=== PATIENT | male | born 1960 | race Caucasian/White ===

== ENCOUNTER 2019-08-09 00:38 | Day surgery (SDC) | payer BC, SELFPAY ==
[2019-08-02 15:06] VITALS: BMI 32.3
[2019-08-09 08:12] VITALS: BP 140/86; PULSE 83; RESP 14; TEMP 36.8; O2SAT 100
[2019-08-09] MEDS: LACTATED RINGERS 1,000 ML 150 ML IV CONT (08:18)
--- NOTE | 2019-08-09 08:24 | WPDGICN ---
Assessment and Plan Assessment and plan (1) Ulcerative colitis: Code(s): K51.90 - Ulcerative colitis, unspecified, without complications Status: Acute Assessment and Plan: Continue Lialda 2.4 g p.o. daily. Screening colonoscopy will be performed. Interval colonoscopy suggested in the future determined after endoscopy. (2) GERD (gastroesophageal reflux disease): Code(s): K21.9 - Gastro-esophageal reflux disease without esophagitis Status: Acute Assessment and Plan: Stable on pantoprazole 40 mg p.o. daily. Anti-reflux measures encouraged. GI Consult Note Consult date/time: 08/09/19 08:24 HPI: Bronson Dey is a 59 year old male Seen at the request of Dr. Zhang. Patient presents for screening colonoscopy. His past history is significant for ulcerative colitis. Currently he has no symptoms. His current weight appetite bowel movements are normal. He denies abdominal pain. He denies bleeding. His weight has remained stable. He has normal bowel movements with no diarrhea. Patient does note occasional heartburn. He has had a good response to pantoprazole 40 mg p.o. daily. Review of Systems Review of Systems: All systems reviewed & are unremarkable except as noted in HPI and below Meds Home Medications and Allergies Home Medications Medication Instructions Recorded Confirmed Type atorvastatin 10 mg PO DAILY 08/02/19 08/09/19 History mesalamine 1.2 g PO BID 08/02/19 08/09/19 History pantoprazole 40 mg PO DAILY 08/02/19 08/09/19 History Allergies Allergy/AdvReac Type Severity Reaction Status Date / Time No Known Allergies Allergy Verified 08/09/19 08:08 Vital Signs Vital Signs - 24 hr 08/09/19 08:12 Temperature 36.8 C Pulse Rate 83 Respiratory Rate 14 Blood Pressure 140/86 Pulse Oximetry 100 Exam Narrative: Exam Narrative: Physical exam reveals Vital Signs to be stable. HEENT exam unremarkable. Lungs are clear to auscultation and percussion. Heart is without murmur or extra sounds. Abdominal exam bowel sounds are present soft nontender with no organomegaly. Digital external rectal exam normal.
--- NOTE | 2019-08-09 08:46 | P.PNAN_ITS ---
Anes - Initial Pre Proc Eval Procedure: Operation Date: 08/09/19 09:00 Proposed Procedures p Colonoscopy - Terrence Dave MD Date/Time: 08/09/19 08:46 Surgeon: Terrence Dave MD Pre Op Diagnosis: ulcerative colitis Patient Data Age: 59 Gender: M Height: 5 ft 9 in Weight: 99.5 kg Last Vital Signs Temp 98.3 F 08/09/19 08:12 Pulse 83 08/09/19 08:12 Resp 14 08/09/19 08:12 BP 140/86 08/09/19 08:12 Pulse Ox 100 08/09/19 08:12 Allergies Allergy/AdvReac Type Severity Reaction Status Date / Time No Known Allergies Allergy Verified 08/09/19 08:08 Home Medications Medication Instructions Recorded Confirmed Type atorvastatin 10 mg PO DAILY 08/02/19 08/09/19 History mesalamine 1.2 g PO BID 08/02/19 08/09/19 History pantoprazole 40 mg PO DAILY 08/02/19 08/09/19 History Patient hx anesthesia problems: none Family hx anesthesia problems: none [facility] Past Medical History Medical History (Updated 08/09/19 @ 08:46 by Haris Shah MD) GERD (gastroesophageal reflux disease) Hyperlipidemia Ulcerative colitis Anes - Eval Final PreProcedure Day of Procedure 08/09/19 08:46 Patient weight: overweight Heart: regular rate and rhythm Lungs: clear to auscultation Airway: Mallampati scale class II Neurological: alert and oriented Last oral intake: >/= 8 hours ASA classification: II Emergent: no Anesthetic plan: proceed Anesthesia type and monitoring: general GIVS and standard monitoring Informed Consent: The patient's anesthetic plan and its attendant risks and benefits were discussed with the patient/family/POA. Questions were solicited and answers provided to the satisfaction of the patient/family/POA.
[2019-08-09 09:13] VITALS: BP 102/74; PULSE 93; RESP 16; O2SAT 96
[2019-08-09 09:23] VITALS: BP 113/71; PULSE 84; RESP 16; O2SAT 98
[2019-08-09 09:33] VITALS: BP 133/69; PULSE 75; RESP 16; O2SAT 98
== END 2019-08-09 09:44 | disposition home or self-care (01) ==
PROVIDERS: PCP Family Medicine; Visit Provider Internal Medicine Gastroenterology
PROC: 0DJD8ZZ Inspection of Lower Intestinal Tract, Via Natural or Artificial Opening Endoscopic (ICD-10-PCS; CPT 45378; principal; 2019-08-09 09:00)
DX: K51.90 Ulcerative colitis, unspecified, without complications (principal); K63.89 Other specified diseases of intestine; K64.8 Other hemorrhoids; K21.9 Gastro-esophageal reflux disease without esophagitis
CPT/HCPCS: 45380; 88305; J2704; J7120

== ENCOUNTER 2020-05-23 11:28 | Emergency (ER) | payer BC, SELFPAY ==
--- NOTE | ~2020-05-23 | XR_ITS ---
EXAMINATION: XR ankle RT min 3V INDICATION: Medial right ankle pain TECHNIQUE: Four views of the right ankle are obtained. COMPARISON: None available FINDINGS: There is soft tissue swelling of the medial ankle. Heterotopic ossification projects adjace nt to the medial malleolus. Bone alignment is normal. The mortise is intact. IMPRESSION: 1. Heterotopic ossification adjacent to the medial malleolus which could reflect avulsion injury. Reviewed, dictated and finalized at location A. ENTRY FOREMAN IMPRESSION: 1. Heterotopic ossification adjacent to the medial malleolus which could reflec t avulsion injury.
[2020-05-23 11:41] VITALS: BP 145/88; PULSE 71; RESP 20; TEMP 36.6; O2SAT 100
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
== END 2020-05-23 12:35 | disposition home or self-care (01) ==
PROVIDERS: Emergency Provider Nurse Practitioner Family; PCP Family Medicine
DX: S82.891A Other fracture of right lower leg, initial encounter for closed fracture (principal); K21.9 Gastro-esophageal reflux disease without esophagitis; E78.5 Hyperlipidemia, unspecified; E66.9 Obesity, unspecified; Z68.34 Body mass index [BMI] 34.0-34.9, adult; R03.0 Elevated blood-pressure reading, without diagnosis of hypertension; X58.XXXA Exposure to other specified factors, initial encounter
CPT/HCPCS: 73610; 99214; G0463

== ENCOUNTER 2021-01-06 04:49 | Emergency (ER) | payer OTHER, BC, SELFPAY ==
[2021-01-06 05:11] VITALS: BP 138/89; RESP 20; TEMP 36.6; O2SAT 97
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
== END 2021-01-06 06:09 | disposition home or self-care (01) ==
PROVIDERS: Emergency Provider Emergency Medicine; PCP Family Medicine
DX: S01.01XA Laceration without foreign body of scalp, initial encounter (principal); S01.81XA Laceration without foreign body of other part of head, initial encounter; K21.9 Gastro-esophageal reflux disease without esophagitis; E78.5 Hyperlipidemia, unspecified; E66.9 Obesity, unspecified; Z68.30 Body mass index [BMI] 30.0-30.9, adult; V43.52XA Car driver injured in collision with other type car in traffic accident, initial encounter
CPT/HCPCS: 12002; 12011; 99282

== ENCOUNTER 2022-08-03 16:07 | Emergency (ER) | payer BC, SELFPAY ==
[2022-08-03 16:34] VITALS: BP 155/99; PULSE 90; RESP 18; TEMP 36.8; O2SAT 97
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
== END 2022-08-03 17:00 | disposition home or self-care (01) ==
PROVIDERS: Emergency Provider Nurse Practitioner Family; PCP Family Medicine
DX: J32.9 Chronic sinusitis, unspecified (principal); J06.9 Acute upper respiratory infection, unspecified; R05.9 Cough, unspecified; K21.9 Gastro-esophageal reflux disease without esophagitis; E78.5 Hyperlipidemia, unspecified; E66.9 Obesity, unspecified; Z68.34 Body mass index [BMI] 34.0-34.9, adult
CPT/HCPCS: 99213; G0463

== ENCOUNTER 2023-05-30 09:49 | Outpatient (CLI) | payer BC, SELFPAY ==
--- NOTE | ~2023-05-30 | XR_ITS ---
EXAMINATION: XR chest 2V DATE: 05/30/2023 10:09 INDICATION: Cough TECHNIQUE: PA and lateral views of the chest are obtained. COMPARISON: 02/07/2009 FINDINGS: The lungs are free of acute opacities. No pleural effusion or pneumothorax. The cardiomedia stinal silhouette is normal. There is mild thoracic spondylosis. IMPRESSION: 1. No acute cardiopulmonary abnormality. Reviewed, dictated and finalized at location B. MATCHER AND FITTER
== END 2023-05-30 09:50 | disposition home or self-care (01) ==
PROVIDERS: PCP Family Medicine
DX: R05.9 Cough, unspecified (principal)
CPT/HCPCS: 71046

== ENCOUNTER 2025-01-10 07:56 | Outpatient (CLI) | payer BC, SELFPAY ==
--- OUTSIDE RECORDS SUMMARY | 2025-01-10 07:58 | XMS_ITS | Encounter Summary ---
Author Organization [facility] Address [address] [place] [address] Care Team Providers Care Elevator Mechanic Apprentice Name Role Phone Gerber Zhang MD Primary Care Provider [phone] Reason for Visit * Reason Onset Date Comments PMC Preprocedure 11/05/2024 Encounter Details Date Type Department Care Team (Late st Contact Info) Description 11/05/2024 Telephone [facility] [address] [facility] [address] [place] [address] Romario Núñez MD [address] [place] [address] PMC Preprocedure Social History Tobacco Use Types Packs/Day Years Used Date Smoking Tobacco: Never Smokeless Tobacco: Never AUDIT-C Answer Date Recorded Q1: How often do you have a drink containing alc ohol? Monthly or less 10/12/2024 Q2: How many drinks containi ng alcohol do you have on a typical day when you are drinking? 1 or 2 10/12/2024 Q3: How often do you have si x or more drinks on one occasion? Never 10/12/2024 Hunger Vital Sign Answer Date Recorded Within the past 12 months, y ou worried that your food would run out before you got the money to buy more. Never true 09/09/19 25 Within the past 12 months, t he food you bought just didn't last and you didn't have money to get more. Never true 09/08/2024 Sex and Gender Information Value Date Recorded Sex Assigned at Not on file Legal Sex Male 9:53 AM [employer]NA[employer] Gender Identity Not on file Sexual Orientation Not on file documented as of this encounter Plan of Treatment Not on file documented as of this encounter Goals Goal Patient Goal Type Associated Problems Recent Progress Patient-Stated? Author CCM Chronic Pain Care Plan Chronic Care Management Improving( 1:11 PM CDT) Teresa Richey, RN Note: Problem: Chronic Pain Goals: 1. Minimize further functional decline 2. Maximize quality of life 3. Control pain Strategies: - Activity/exercise program recommendation - Conservative stepwise pain medicine strategy with multi-disciplinary approach - Recommend healthy lifestyle strategies and compensatory methods as needed documented as of this encounter Visit Diagnoses Not on filedocumented in this encounter Care Teams Elevator Mechanic Apprentice Relationship Specialty Start Date End Date Gerber Zhang MD [address] [facility] [place] [address] PCP - General Family Medicine 05/17/24 documented as of this encounter
--- OUTSIDE RECORDS SUMMARY | 2025-01-10 07:58 | XMS_ITS ---
Author Organization [facility] [employer] [place] ([address]) Address [address] [place] [address] Care Team Providers Care Liquor Grinder Mill Operator Name Role Phone Gerber Zhang Primary Care Provider UnavailBilly Sherman Unavailable [phone] ZZ-Migration, Provider Unavailable Unavailab le [facility] Conversion Encounter Medications Medication SIG (Take, Route, Frequency, Duration) Notes Start Date End Date Status Meloxicam 7.5 MG 1 tab(s) orally once a day Active Azelastine HCl 137 MCG/SPRAY 2 spray(s) intranasally 2 times a day; Duration: 30 days Active FLUTICASONE HFA 110 MCG/INH 2 PUFF(S) INHALED 2 TIMES A DAY; Duration: 30 DAYS *Please review for potential replacement for e-prescription and drug interaction check* Not-Taking Ipratropium [place] 0.06 % 2 spray(s) intranasally 4 times a day; Duration: 30 days 06/09/2023 Active Omeprazole 20 MG 1 cap(s) orally once a day Active Montelukast Sodium 10 MG 1 tab(s) orally once a day Active Zolpidem Tartrate 10 MG 1 tab(s) orally once a day (at bedtime) Active Loratadine 10 MG 1 tab(s) orally once a day Active Cetirizine HCl 10 MG 1 tab(s) orally once a day Active Atorvastatin Calcium 20 MG 1 tab(s) orally once a day Active Levocetirizine Dihydrochloride 5 MG 1 tab(s) orally once a day (in the evening) Active Fluticasone Propionate 50 MCG/ACT 1 spray(s) in each nostril once a day Active Encounters Encounter Location Date Provider Diagnosis [facility] [place] [place] [address] 11/15/2023 Provider Min Hypertrophy of nasal turbinates J34.3 Assessments Encounter Date Diagnosis (ICD Code) Assessment Notes Treatment Notes Treatment Clinical Notes Section Notes 11/15/2023 Hypertrophy of nasal turbinates (ICD-10 - J34.3) Plan Of Treatment Medication Medication Name Sig Start Date Stop Date Notes Ipratropium [place] 0.06 % 2 spray(s) in tranasally 4 times a day; Duration: 30 days 06/09/2023 Montelukast Sodium 10 MG 1 tab(s) orally once a day Levocetirizine Dihydrochlori de 5 MG 1 tab(s) orally once a day (in the evening) Fluticasone Propionate 50 MCG/ACT 1 spray(s) in each nostril once a day Progress Notes * Bronson HORNER RDOB:1960 (64 yo M)Acc No.[id number]:11/15/2023 Patient: Yesenia KWOKBronson R Provider: Henri Calero :1960 A ge:63 Y S ex:Male Date:11/15/2023 [address] [id number] Pcp:Gerber Zhang Subjective: * Chief Complaints: * 1 . [facility] Conversion Encounter. * Medical History: * Medications: T aking Zolpidem Tartrate 10 MG Tablet 1 tab(s) orally once a day (at bedtime) , Taking Cetirizine HCl 10 MG Tablet 1 tab(s) orally once a day , Taking Loratadine 10 MG Tablet 1 tab(s) orally once a day , Taking Atorvastatin Calcium 20 MG Tablet 1 tab(s) orally once a day , Taking Omeprazole 20 MG Capsule Delayed Release 1 cap(s) orally once a day , Taking Meloxicam 7.5 MG Tablet 1 tab(s) orally once a day , Taking Azelastine HCl 137 MCG/SPRAY Solution 2 spray(s) intranasally 2 times a day , Not-Taking/PRN FLUTICASONE HFA 110 MCG/INH AEROSOL 2 PUFF(S) INHALED 2 TIMES A DAY , Notes to Pharmacist: *Please review for potential replacement for e-prescription and drug interaction check* Objective: * Vitals: Assessment: * Assessment: 1. H ypertrophy of nasal turbinates - J34.3 (Primary) Plan: * Treatment: * Billing Information: * Visit Code: * Procedure Codes: * Electronic signature of Duglas ALMARAZ-Migration on 01/10/2025 at 07:58 AM CDT Sign off status: Pending * Provider: Henri molina Migration Date: 0 11/15/2023 Generated for Kristopher bridges/Bj/Latrice on: 0 01/10/2025 07:58 AM CDT
--- OUTSIDE RECORDS SUMMARY | 2025-01-10 07:59 | XMS_ITS | Clinical Summary ---
Author Organization [facility] Address [address] [place] [address] Care Team Providers Care Wage Adjuster Name Role Phone Kim Murillo MD Primary Care Provider Source Comments [facility],non-owned Affiliates and Associated Physician Practices is amultiple site organization consisting of ambulatory clinics and hospital sitesin [place], [place], [place] and [place]. This disclosure is being madepursuant to the Care Everywhere program and may not contain all information available regarding this patient. 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 Gender Identity Not on file Sexual Orientation Not on file Plan of Treatment Health Maintenance Due Date Last Done Comments COLOGUARD (AGES 45-75) - COL ON CA SCREENING 1962 COLON MONITORING 1962 COLONOSCOPY - COLON CA SCREENING 1962 CT COLONOGRAPHY - COLON CA SCREENING 1962 Colorectal Cancer Screening 1962 FIT - COLON CA SCREENING 1962 FLEX SIG - COLON CA SCREENING 1962 LIPID TESTING 1962 HIV SCREENING 1977 HEPATITIS C SCREENING 05/20/1980 DTAP/TDAP/TD VACCINES (1 - Tdap) 1981 PNEUMOCOCCAL VACCINE 50+ (1 of 1 - PCV) 2012 ZOSTER VACCINE (1 of 2) 2012 COVID-19 VACCINE (1 - 2023-2 5 season) 2024 DEPRESSION SCREENING 06/02/2024 INFLUENZA VACCINE (#1) 2025 Respiratory Syncytial Virus (RSV) Vaccine Pt: or over 60 yrs (1 - 1-dose 75+ series) 2037 HEPATITIS B VACCINE Aged Out No longe r eligible based on patient's age to complete this topic HIB VACCINE Aged Out No longer eligi ble based on patient's age to complete this topic HPV VACCINE Aged Out No longer eligi ble based on patient's age to complete this topic MENINGOCOCCAL (Group B) VACC INE SHARED DECISION-MAKING Aged Out No longer eligibl e based on patient's age to complete this topic MENINGOCOCCAL GROUPS A/C/Y/W VACCINE Aged Out No longer eligible b ased on patient's age to complete this topic Insurance ANTHEM ANTHEM ANTHEM Member Subscriber Plan / Payer (Ef fective 2014-Present) Name:Elijah Horner Relation to Subscriber:Self Name:Elijah Horner Payer ID:[id number] (NAIC) Type:PPO Address: [address] [place] [phone] Care Teams Wage Adjuster Relationship Specialty Start Date End Date Kim Murillo MD [address] [place] [phone] PCP - General Family Medicine 11/23/14
--- OUTSIDE RECORDS SUMMARY | 2025-01-10 07:59 | XMS_ITS | Clinical Summary ---
Author Organization [facility] Address [address] [place] [address] Care Team Providers Care Litigation Support Analyst Name Role Phone Gerber Zhang MD Primary Care Provider [phone] Allergies Active Allergy Reactions Criticality Noted Date Comments Terbinafine Fever Medium 12/22/2024 Medications atorvastatin (LIPITOR) 20 mg tablet Take 1 tablet (20 mg total) by mouth nightly 05/10/20 24 Active lidocaine (LIDODERM) 5 % daily as needed 03/29/[address] (VOLTAREN) 75 mg EC tablet Take 1 tablet (75 mg total) by mouth daily Active omeprazole (PriLOSEC) 20 mg capsule Take 1 capsule (20 mg total) by mouth every morning 07/18/19 25 Active zolpidem (AMBIEN) 10 mg tablet Take 1 tablet (10 mg total) by mouth nightly as needed for sleep 09/03/19 25 Active baclofen (LIORESAL) 10 mg tabletIndicati ons:Lumbar spondylosis Take 1 tablet (10 mg total) by mouth 3 (three) times a day 90 tablet 09/09/19 25 Active Additional Information Patient taking differently:10 mg oral3 times daily PRN, Reported on 12/22/2024 cyclobenzaprin e (FLEXERIL) 10 mg tablet Take 1 tablet (10 mg total) by mouth 3 (three) times a day as needed for muscle spasms Active pregabalin (LYRICA) 50 mg capsule Take 1 capsule (50 mg total) by mouth 2 (two) times a day Active traMADoL (ULTRAM) 50 mg tablet every 6 (six) hours as needed Active losartan (COZAAR) 50 mg tablet Take 1 tablet (50 mg total) by mouth daily 11/18/19 25 Active phentermine 30 mg capsule Take 1 capsule (30 mg total) by mouth daily before breakfast 12/14/19 25 Active losartan (COZAAR) 25 mg tablet 2 tablets (50 mg total) 05/10/20 24 025 Discontinued naproxen (ALEVE) 220 mg tablet Take 1 tablet (220 mg total) by mouth 2 (two) times a day with meals 3 tablet twice a day 025 Discontinued(P atient Reported) loratadine (CLARITIN) 10 mg tablet daily 025 Discontinued(P atient Reported) phentermine 15 mg capsule Take 1 capsule (15 mg total) by mouth daily before breakfast 08/23/19 25 025 Discontinued gabapentin (NEURONTIN) 300 mg capsule 09/29/19 25 025 Discontinued(P atient Reported) Active Problems Problem Noted Date Diagnosed Date Osteoarthritis of spine with radiculopathy, lumbosacral region 06/23/2024 Radial nerve compression 08/29/2011 Encounters Date Type Department Care Team Description 12/22/2024 12:24 PM CDT - 12/22/2024 11:59 PM CDT Hospital Encounter [facility] [address] [facility] [address] [place] [address] Romario Núñez MD Sacroiliitis (Primary Dx); Cervical radiculopathy Discharge Disposition: Discharge to home or self care 12/17/2024 Telephone [facility] [address] [facility] [address] [place] [address] Romario Núñez MD [facility] Preprocedure 11/09/2024 8:13 AM CDT - 11/09/2024 11:59 PM CDT Hospital Encounter [facility] [address] [place] [address] Romario Núñez MD Cervical radiculopathy (Primary Dx); Sacroiliitis Discharge Disposition: Discharge to home or self care 11/05/2024 Telephone [facility] [address] [facility] [address] [place] [address] Romario Núñez MD [facility] Preprocedure 10/12/2024 10:21 AM CDT - 10/12/2024 11:59 PM CDT Hospital Encounter [facility] [address] [facility] [address] [place] [address] Romario Núñez MD Lumbar spondylosis (Primary Dx); Cervical radiculopathy Discharge Disposition: Discharge to home or self care from Last 3 Months Surgical History Surgery Date Site/Laterality Comments ARM SURGERY Left left forearm tendon removal Medical History Medical History Date Comments Low back pain Hypertension Hypercholesterolemia GERD (gastroesophageal reflux disease) Spinal stenosis 2023 Cervical disc disorder 2023 Lumbosacral disc disease 2023 Joint pain 2023 Neck pain 2023 Arthritis Family History Medical History Relation Name Comments Arthritis Mother Brinda Fernandes Cancer Mother Brinda Fernandes Kidney disease Mother Brinda Fernandes Kidney failure Mother Brinda Fernandes Relation Name Status Comments Father Mother Brinda Fernandes Alive Social History Tobacco Use Types Packs/Day Years Used Date Smoking Tobacco: Never Smokeless Tobacco: Never Tobacco Cessation:Counseling Given: Not Answered AUDIT-C Answer Date Recorded Q1: How often do you have a drink containing alc ohol? Monthly or less 12/22/2024 Q2: How many drinks containi ng alcohol do you have on a typical day when you are drinking? 1 or 2 12/22/2024 Q3: How often do you have si x or more drinks on one occasion? 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 Gender Identity Not on file Sexual Orientation Not on file Obstetrics History Last Filed Vital Signs Vital Sign Reading Time Taken Comments Blood Pressure 143/99 12/22/2024 2:11 PM CDT Pulse 70 12/22/2024 2:11 PM CDT Temperature 36.5 C (97.7 F) 12/22/2024 1:02 PM CDT Respiratory Rate 18 12/22/2024 2:11 PM CDT Oxygen Saturation 95% 12/22/2024 2:11 PM CDT Inhaled Oxygen Concentration - - Weight 102.1 kg (225 lb) 12/22/2024 1:02 PM CDT Height 175.3 cm (5' 9) 12/22/2024 1:02 PM CDT Body Mass Index 33.23 12/22/2024 1:02 PM CDT Plan of Treatment Health Maintenance Due Date Last Done Comments Colon Cancer Screening-Colonoscopy 1962 Depression Screening 1962 Hepatitis C Screening 1962 Prostate Cancer Screening-PSA 1962 Hepatitis B Screening 1980 Regular Well Visit/Exam 18-64 1980 Zoster Vaccine (1 of 2) 2012 Influenza Vaccine (#1) 2025 , 02/22/2021, 03/28/2020, Additional history exists DTaP/Tdap/Td Vaccine (2 - Td or Tdap) 03/22/2029 03/22/2019 Pneumococcal vaccine <65 Aged Out 04/17/2020 No longer eligible based on patient's age to complete this topic Covid-19 Vaccine Completed 03/16/2024, , 03/04/2022, Additional history exists Goals Goal Patient Goal Type Associated Problems Recent Progress Patient-Stated? Author CCM Chronic Pain Care Plan Chronic Care Management Improving( 1:11 PM CDT) No Teresa Pollard, RN Note: Problem: Chronic Pain Goals: 1. Minimize further functional decline 2. Maximize quality of life 3. Control pain Strategies: - Activity/exercise program recommendation - Conservative stepwise pain medicine strategy with multi-disciplinary approach - Recommend healthy lifestyle strategies and compensatory methods as needed Procedures Procedure Name Priority Date/Time Associated Diagnosis Comments PAIN MGMT IMAGING SI JOINT BILATERAL ARTHROGRPHY Schedule Routine, Read Routine (OP Routine) 12/22/2024 2:05 PM CDT Sacroiliitis PAIN MGMT IMAGING CERVICAL/THORACIC EPIDURAL STEROID INJ Schedule Routine, Read Routine (OP Routine) 11/09/2024 10:00 AM CDT Cervical radiculopathy PAIN MGMT IMAGING LUMBAR/SACRAL ABLATION BILATERAL Schedule Routine, Read Routine (OP Routine) 10/12/2024 12:29 PM CDT Lumbar spondylosis from Last 3 Months Results * Imaging SI Joint Injection Bilateral ([id number]) (12/22/2024 2:05 PM CDT) Narrative [facility] - 12/22/2024 2:31 PM CDT The images from this study are not interpreted by Radiology. Please refer to the physician's procedure / OR operative note. Romario REYES PAIN MGMT PROCEDURES Final Result Performing Organization Address [facility] de Phone Number [facility] * Imaging Cervical/Thoracic Epidural Steroid INJ ([id number]) (11/09/2024 10:00 AM CDT) Narrative [facility] - 11/09/2024 10:00 AM CDT The images from this study are not interpreted by Radiology. Please refer to the physician's procedure / OR operative note. Romario Núñez MD [facility] PAIN MGMT PROCEDURES Final Result Performing Organization Address [facility] de Phone Number [facility] * Imaging Lumbar/Sacral Medial Branch RFA Bilateral ([id number]) (10/12/2024 12:29 PM CDT) Narrative [facility] - 10/12/2024 12:30 PM CDT The images from this study are not interpreted by Radiology. Please refer to the physician's procedure / OR operative note. Sharri REYES PAIN MGMT PROCE DURES Final Result [facility] from Last 3 Months Insurance [facility] Care Teams Litigation Support Analyst Relationship Specialty Start Date End Date Gerber Zhang MD [address] [facility] [place] [id number] PCP - General Family Medicine 05/17/24
--- OUTSIDE RECORDS SUMMARY | 2025-01-10 07:59 | XMS_ITS | Patient Health Record ---
Author Organization [facility] [employer] [facility] ([address]) Address [address] [facility] [address] [place] [address] Care Team Providers Care Utility Arborist Name Role Phone Gerber Zhang Primary Care Provider Billy Tirado Unavailable [phone] Allergies No Known Allergies Reason For Referral No Information Medications Medication SIG (Take, Route, Frequency, Duration) Notes Start Date End Date Status Levocetirizine Dihydrochloride 5 MG 1 tab(s) orally once a day (in the evening) Active Meloxicam 7.5 MG 1 tab(s) orally once a day Active Fluticasone Propionate 50 MCG/ACT 1 spray(s) in each nostril once a day Active IPRATROPIUM [place]AL 42 mcg/inh 2 spray(s) intranasally 4 times a day; Duration: 30 days 06/09/2023 Active Azelastine HCl 137 MCG/SPRAY 2 spray(s) intranasally 2 times a day; Duration: 30 days Active Montelukast Sodium 10 MG 1 tab(s) orally once a day Active FLUTICASONE HFA 110 MCG/INH 2 PUFF(S) INHALED 2 TIMES A DAY; Duration: 30 DAYS *Please review for potential replacement for e-prescription and drug interaction check* Not-Taking MELOXICAM 7.5 mg 1 tab(s) orally once a day Active ATORVASTATIN 20 mg 1 tab(s) orally once a day Active Zolpidem Tartrate 10 MG 1 tab(s) orally once a day (at bedtime) Active Ipratropium [place] 0.06 % 2 spray(s) intranasally 4 times a day; Duration: 30 days 06/09/2023 Active OMEPRAZOLE 20 mg 1 cap(s) orally once a day Active LORATADINE 10 mg 1 tab(s) orally once a day Active Loratadine 10 MG 1 tab(s) orally once a day Active Cetirizine HCl 10 MG 1 tab(s) orally once a day Active Omeprazole 20 MG 1 cap(s) orally once a day Active Atorvastatin Calcium 20 MG 1 tab(s) orally once a day Active CETIRIZINE 10 mg 1 tab(s) orally once a day Active FLUTICASONE [place] 50 mcg/inh 1 spray(s) in each nostril once a day Active ZOLPIDEM 10 mg 1 tab(s) orally once a day (at bedtime) Active LEVOCETIRIZINE 5 mg 1 tab(s) orally once a day (in the evening) Active AZELASTINE NASAL 137 mcg/inh 2 spray(s) intranasally 2 times a day; Duration: 30 days Active MONTELUKAST 10 mg 1 tab(s) orally once a day Active Social History Tobacco Use: Social History Observation Description Date Details (start date - stop date) Former Smoker NA - NA Smoking Smart Form: Question Answer Notes Are you a: former smoker Problems Problem Type SNOMED Code ICD Code Onset Dates Problem Status W/U Status Risk Notes Problem Chronic rhinitis (78593937) Chronic rhinitis (J31.0) Active confirmed Problem Hypertrophy of nasal turbinates (74543741) Hypertrophy of nasal turbinates (J34.3) Active confirmed Problem Cough, unspecified (R05.9) Active confirmed Plan Of Treatment Pending Test Test Name Order Date X ray : Chest 05/12/2023 RESPIRATORY ALLERGY PROFILE REGION [place]: [place], [place] 05/12/2023 Insurance Providers Payer Name Payer Address Payer Phone Subscriber Number Group Number Insured Name Patient Relationship to Insured Coverage Start Date Coverage End Date [facility] [address] [place] [address] [id number] Yaquelin Masters Spouse - patient is the spouse of the insured
== END 2025-01-10 07:57 | disposition home or self-care (01) ==
LOC: ANHAUDIO 07:56
PROVIDERS: PCP Family Medicine; Visit Provider Otolaryngology
DX: H83.3X3 Noise effects on inner ear, bilateral (principal)
CPT/HCPCS: 92557; 92567

== ENCOUNTER 2025-03-01 01:44 | Day surgery (SDC) | payer BC, SELFPAY ==
--- OUTSIDE RECORDS SUMMARY | 2009-07-06 11:15 | XMS_ITS | Continuity of Care Document ---
Author Organization Formerly [facility] Address [address] [place] [address] [facility] [address] [place] [address] Phone Care Team Providers Care Coating Machine Operator Helper Name Role Phone Gutierrez OD, Terrence Unavailable Unavailable Procedures Procedure Date Eye Exam Established Pt Advance Directives Directive Yes / No Effective Date File Name No Information Encounters Encounter Description Practice Location Reason(s) For Visit Diagnoses Date Provider Providers Copied on Encounter [facility], [address] [place] [address] [address], [place], [place], [id number], [place] tel:[phone] [facility] No Information [phone] Gutierrez OD Terrence. [address] , [address], [place], [address], [place]. tel:[phone] Family History Family Member Type Diagnosis Age At Onset No Information Payers Payer name Insurance type Covered constitution party ID Authoriza tion(s) No Information Social History Type Description Quantity Date Captured Comments Sex Male Smoking Status No Information Chief Complaint And Reason For Visit No Information Reason For Referral Reason For Referral No Information History Of Present Illness Encounter Date Complaint History Of Prese nt Illness No Information Functional Status Date Functional Assessmen t No Information Instructions Date Instruction Additional Infor mation No Information Assessments Type Assessment Date No Information Patient Care Teams Name Effective Dates (start - stop) Status Members No Information
[2025-02-14 12:58] VITALS: BMI 32.5
--- OUTSIDE RECORDS SUMMARY | 2025-03-01 01:46 | XMS_ITS | Encounter Summary ---
Author Organization [facility] Healthcare Address [address] [place] [address] Care Team Providers Care Canteen Operator Name Role Phone Gerber Zhang MD Primary Care Provider [phone] Reason for Visit * Reason Onset Date Comments PMC Preprocedure 11/05/2024 Encounter Details Date Type Department Care Team (Late st Contact Info) Description 11/05/2024 Telephone [facility] [place] [facility] [address] [facility] [address] [place] [address] Romario Núñez MD [address] [place] [address] PMC Preprocedure Social History Tobacco Use Types [...] on file 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
--- OUTSIDE RECORDS SUMMARY | 2025-03-01 01:46 | XMS_ITS | Clinical Summary ---
Author Organization [facility] Address [address] [facility] [place] [address] Care Team Providers Care Novelty Printing Machine Operator Name Role Phone Kim Murillo MD Primary Care Provider [phone] Source Comments [facility],non-owned Affiliates and Associated Physician Practices is amultiple site organization consisting of ambulatory clinics and hospital sitesin [place], [place], [place] and [place]. This disclosure is being madepursuant to the Care Everywhere program and may not contain all information available regarding this patient. 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
--- OUTSIDE RECORDS SUMMARY | 2025-03-01 01:46 | XMS_ITS | Clinical Summary ---
Author Organization [facility] Address [address] [place] [address] Care Team Providers Care [employer] Name Role Phone Gerber Zhang MD Primary Care Provider [phone] Allergies Active Allergy Reactions Criticality Noted Date Comments Terbinafine Fever Medium 12/22/2024 Medications atorvastatin (LIPITOR) 20 mg tablet Take 1 tablet (20 mg total) by mouth nightly 4 Active lidocaine (LIDODERM) 5 % daily as needed [address] (VOLTAREN) 75 mg EC tablet Take 1 tablet (75 mg total) by mouth daily Active omeprazole (PriLOSEC) 20 mg capsule Take 1 capsule (20 mg total) by mouth every morning 5 Active zolpidem (AMBIEN) 10 mg tablet Take 1 tablet (10 mg total) by mouth nightly as needed for sleep 5 Active baclofen (LIORESAL) 10 mg tabletIndication s:Lumbar spondylosis Take 1 tablet (10 mg total) by mouth 3 (three) times a day 90 tablet 5 Active Additional Information Patient taking differently:10 mg oral3 times daily PRN, Reported on 12/22/2024 cyclobenzaprine (FLEXERIL) 10 mg tablet Take 1 tablet [...] tablet (50 mg total) by mouth daily 5 Active phentermine 30 mg capsule Take 1 capsule (30 mg total) by mouth daily before breakfast 5 Active Active Problems Problem Noted Date Diagnosed Date Osteoarthritis of spine with radiculopathy, lumbosacral region 06/23/2024 Radial nerve compression 08/29/2011 Encounters Date Type Department Care Team Description 12/22/2024 12:24 PM CDT - 12/22/2024 11:59 PM CDT Hospital Encounter [facility] [address] [place] [id number] Romario Núñez MD Sacroiliitis (Primary Dx); Cervical radiculopathy Discharge Disposition: Discharge to home or self care 12/17/2024 Telephone [facility] [address] [place] [address] Advanced [facility] [address] [place] [phone] Romario Núñez MD PMC Preprocedure from Last 3 Months Surgical History Surgery [...] on file Legal Sex Male 9:53 AM [employer] Gender Identity Not on file Sexual Orientation [...] of 2) 2012 Influenza Vaccine (#1) 2025 2, 02/22/2021, 03/28/2020, Additional history exists DTaP/Tdap/Td Vaccine [...] (OP Routine) 12/22/2024 2:05 PM CDT Sacroiliitis from Last 3 Months Results * Imaging SI Joint Injection Bilateral ([id number]) (12/22/2024 2:05 PM CDT) Narrative [facility] - 12/22/2024 2:31 PM CDT The images from this study are not interpreted by Radiology. Please refer to the physician's procedure / OR operative note. us Romario Núñez MD IMG PAIN MGMT PROCEDURES Final Result [facility] from Last 3 Months Insurance [facility] [employer] [facility] [employer] Care Teams [employer] Relationship Specialty Start Date End Date Gerber Zhang MD [address] [facility] [place] [address] PCP - General Family Medicine 05/17/24
--- OUTSIDE RECORDS SUMMARY | 2025-03-01 01:47 | XMS_ITS | Data Portability ---
Author Organization [place] - [facility] [place] [facility], Main Office Address [address] [place] [address] Care Team Providers Care Vice President Tax Name Role Phone GERBER ZHANG Primary Care Provider GERBER ZHANG Referring Provider GERBER ZHANG Primary Care Provider Assessment Encounter Date Assessment Date Assessment LastModified by Organization Details LastModified Time 08/18/2024 08/18/2024 63-year-old male presents for re-evaluation of his bilateral hips, right worse than left. At his last appointment we ordered PT and meloxicam. He has since finished PT and is still taking the meloxicam daily. He states his hips have not made any improvements. He can still only walk about 50 yd before begins to bother him. Physical exam: He has nonantalgic gait. Pain with log roll. Flexion to 100, internal rotation 10, external rotation 50. Positive Stinchfield. He has bilateral hip arthritis. We discussed that the next course of treatment would be to fluoro guided cortisone injection. He would like to try this bilaterally. We will order that for him and have him continue PT exercises on his own along with meloxicam. We will see him back as needed after the injections for pain. He is in agreement with this plan. [email or web address] Not available 08/18/2024 09:15:34 10/19/2024 10/19/2024 64 yo M with - WELL ADULT VISIT - HTN - INSOMNIA, chronic (Intolerance to Trazodone) - HLD - SEASONAL ALLERGIES RHINITIS - GERD - IBS-D - LUMBAR SPONDYLOSIS - LUMBAR SPINAL STENOSIS - DDD L-SPINE - CHRONIC LOW BACK PAIN - POLYARTHROPATHY - B/L HIP OA - CHRONIC TINNITUS - FATIGUE - BPH - ED - RT SHOULDER PAIN, Chronic - OBESITY I - H/O HEMORRHOIDS - FH OF ARTHRITIS & CVD MRI L-spine wo: 05/17/24. X-ray L-spine & Rt hip: 10/30/23. Annual labs: 10/20/23. Annual labs, H pylori: 10/14/22. Annual labs: 04/16/21. X-ray Rt ankle: 05/23/20. Fatigue labs: 04/07/20. Annual labs, GUMARO: 04/07/20. Annual labs: 03/25/19. Wt: 233(04/05/19) - 227(05/27/19) - 224(06/23/19) - 217(08/10/19) - 222(10/12/19) [Stop] Wt: 247(08/07/20) - 230(09/14/20) - 225(11/01/20) - 221(11/30/20) - 219(12/25/20) - 218(01/22/21) - 218(02/22/21) [Stop] Wt: 235(11/26/21) - 232(01/21/22) - 227(04/15/22) [Stop] Wt: 229(10/29/22) - 226(12/23/22) - 226(02/17/23) - 223(05/19/23) - 223(07/21/23) [Stop] Wt: 236(08/16/24) - 229(10/19/24) D/w pt in detail about his conditions, recent labs & imagines and further plan of care. Will do routine labs. All questions [place]. [place] All meds verified with pt. Meds as directed. Risks Vs benefits of Aspirin 81mg po every other day with food explained. Pt agreed. Diet and exercise explained in detail. BP diary education given and call us if any concerns. F/u with Rheumat as per schedule. Cont f/u with Pain clinic as per schedule. Cont f/u with Spine surgeon at [place] as per schedule. Cont f/u with Ortho as per schedule. Cont f/u with Road Design Engineer as per schedule. Cont f/u with Cardio as per schedule. Cont f/u with ENT as per schedule. Cont f/u with GI at [place] as per schedule. Pt has done PT in the past. Offered to do sleep study; but pt declined. Pt got s/e from Trazodone, Wegovy, Gabapentin. Zepbound is not covered with pts insurance. HM: EGD - 2016, normal as per pt. Cont f/u with GI as per schedule. Colonoscopy - 08/09/19, normal as per pt. Cont f/u with GI as per schedule. Tdap - 03/22/19. Flu - 02/23. Pneumo - 04/17/20. Shingrix, RSV - At pharmacy/HD. F/u in 1 month. Annual labs in 10/25. [email or web address] Not available 10/19/2024 09:37:35 11/17/2024 11/17/2024 64 yo M with - HTN - HLD - INSOMNIA, chronic (Intolerance to Trazodone) - SEASONAL ALLERGIES RHINITIS - GERD - IBS-D - LUMBAR SPONDYLOSIS - LUMBAR SPINAL STENOSIS - DDD L-SPINE - CHRONIC LOW BACK PAIN - POLYARTHROPATHY - B/L HIP OA - CHRONIC TINNITUS - FATIGUE - BPH - ED - RT SHOULDER PAIN, Chronic - OBESITY I - H/O HEMORRHOIDS - FH OF ARTHRITIS & CVD Annual labs: 10/19/24. MRI L-spine wo: 05/17/24. X-ray L-spine & Rt hip: 10/30/23. Annual labs: 10/20/23. Annual labs, H pylori: 10/14/22. Annual labs: 04/16/21. X-ray Rt ankle: 05/23/20. Fatigue labs: 04/07/20. Annual labs, GUMARO: 04/07/20. Annual labs: 03/25/19. Wt: 233(04/05/19) - 227(05/27/19) - 224(06/23/19) - 217(08/10/19) - 222(10/12/19) [Stop] Wt: 247(08/07/20) - 230(09/14/20) - 225(11/01/20) - 221(11/30/20) - 219(12/25/20) - 218(01/22/21) - 218(02/22/21) [Stop] Wt: 235(11/26/21) - 232(01/21/22) - 227(04/15/22) [Stop] Wt: 229(10/29/22) - 226(12/23/22) - 226(02/17/23) - 223(05/19/23) - 223(07/21/23) [Stop] Wt: 236(08/16/24) - 229(10/19/24) - 227(11/17/24) D/w pt in detail about his conditions, recent labs & imagines and further plan of care. Will refer pt to ENT. All questions [place]. [place] All meds verified with pt. Meds as directed. Risks Vs benefits of Aspirin 81mg po every other day with food explained. Pt agreed. Diet and exercise explained in detail. BP diary education given and call us if any concerns. F/u with Rheumat as per schedule. Cont f/u with Pain clinic as per schedule. Cont f/u with Spine surgeon at [place] as per schedule. Cont f/u with Ortho as per schedule. Cont f/u with Road Design Engineer as per schedule. Cont f/u with Cardio as per schedule. Cont f/u with ENT as per schedule. Cont f/u with GI at [place] as per schedule. Pt has done PT in the past. Offered to do sleep study; but pt declined. Pt got s/e from Trazodone, Wegovy, Gabapentin. Zepbound is not covered with pts insurance. HM: EGD - 2016, normal as per pt. Cont f/u with GI as per schedule. Colonoscopy - 08/09/19, normal as per pt. Cont f/u with GI as per schedule. Tdap - 03/22/19. Flu - 02/23. Pneumo - 04/17/20. Shingrix, RSV - At pharmacy/HD. F/u in 2.5 months. Annual labs in 10/25. Not available 11/17/2024 09:40:25 01/19/2025 01/19/2025 64 yo M with - WT LOSS PROGRAM - HTN - HLD - INSOMNIA, chronic (Intolerance to Trazodone) - SEASONAL ALLERGIES RHINITIS - GERD - IBS-D - LUMBAR SPONDYLOSIS - LUMBAR SPINAL STENOSIS - DDD L-SPINE - CHRONIC LOW BACK PAIN - POLYARTHROPATHY - B/L HIP OA - CHRONIC TINNITUS - FATIGUE - BPH - ED - RT SHOULDER PAIN, Chronic - OBESITY I - H/O HEMORRHOIDS - FH OF ARTHRITIS & CVD Annual labs: 10/19/24. MRI L-spine wo: 05/17/24. X-ray L-spine & Rt hip: 10/30/23. Annual labs: 10/20/23. Annual labs, H pylori: 10/14/22. Annual labs: 04/16/21. X-ray Rt ankle: 05/23/20. Fatigue labs: 04/07/20. Annual labs, GUMARO: 04/07/20. Annual labs: 03/25/19. Wt: 233(04/05/19) - 227(05/27/19) - 224(06/23/19) - 217(08/10/19) - 222(10/12/19) [Stop] Wt: 247(08/07/20) - 230(09/14/20) - 225(11/01/20) - 221(11/30/20) - 219(12/25/20) - 218(01/22/21) - 218(02/22/21) [Stop] Wt: 235(11/26/21) - 232(01/21/22) - 227(04/15/22) [Stop] Wt: 229(10/29/22) - 226(12/23/22) - 226(02/17/23) - 223(05/19/23) - 223(07/21/23) [Stop] Wt: 236(08/16/24) - 229(10/19/24) - 227(11/17/24) - 222(01/19/25) D/w pt in detail about his conditions, recent labs & imagines and further plan of care. Pt wants to continue on same dose for couple months. All questions [place] pt. [place] All meds verified with pt. Meds as directed. Risks Vs benefits of Aspirin 81mg po every other day with food explained. Pt agreed. Diet and exercise explained in detail. BP diary education given and call us if any concerns. F/u with Rheumat as per schedule. Cont f/u with Pain clinic as per schedule. Cont f/u with Spine surgeon at [place] as per schedule. Cont f/u with Ortho as per schedule. Cont f/u with Road Design Engineer as per schedule. Cont f/u with Cardio as per schedule. Cont f/u with ENT as per schedule. Cont f/u with GI at [place] as per schedule. Pt has done PT in the past. Offered to do sleep study; but pt declined. Pt got s/e from Trazodone, Wegovy, Gabapentin. Zepbound is not covered with pts insurance. HM: EGD - 2016, normal as per pt. Cont f/u with GI as per schedule. Colonoscopy - 08/09/19, normal as per pt. Cont f/u with GI as per schedule. Tdap - 03/22/19. Flu - 02/23. Pneumo - 04/17/20. Shingrix, RSV - At pharmacy/HD. F/u in 2 months. Lipids, T level in 03/26. Annual labs in 10/25. [email or web address] Not available 01/19/2025 12:39:33 Plan of Treatment Reminders Order Date Submit Date Provider Last Modified By Organization Details Last Modified Time Details Appointments Any 15 2024 08:45A Pily Zhang MD Not available Not available Not available Lab testoster one, free + total, serum 2024 025 [email or web address] [facility] (Lab), [address] [place], [address], 01/19/2025 12:34:16 lipid panel, serum 2024 025 [email or web address] [facility] (Lab), [address] [place], [address], 01/19/2025 12:34:16 vitamin B12 + folate, serum or blood 2024 025 [email or web address] [facility] (Lab), [address] [place], [address], 10/26/2024 12:00:16 magnesium , serum or plasma 2024 025 MARC [facility] (Lab), [address] [place], [address], 10/19/2024 14:44:45 CMP, serum or plasma [address] (Lab), [address] [place], [address], 10/19/2024 12:48:15 CBC w/ auto diff 2024 025 [facility] (Lab), [address] [place], [address], 10/19/2024 14:21:59 lipid panel, blood [address] (Lab), [address] [place], [address], 10/26/2024 12:00:15 TSH, serum, reflex free T4 [address] (Lab), [address] [place], [address], 10/26/2024 12:00:16 PSA, serum or plasma [address] (Lab), [address] [place], [address], 10/26/2024 12:00:16 urinalysi s complete, reflex culture [address] (Lab), [address] [place], [address], 10/19/2024 12:48:55 glycohemo globin, total, blood 2024 025 [facility] (Lab), [address] [place], [address], 10/19/2024 22:17:42 uric acid, serum or plasma 2024 025 [facility] (Lab), [address] [place], [address], 10/19/2024 14:44:47 vitamin D3, 25-hydrox y, serum 2024 025 [facility] (Lab), [address] [place], [address], 10/19/2024 15:26:57 Referral ENT surgery referral - Chronic tinntus and chronic sinus pressure. Please call patient to schedule an appointme nt. Thank you. 2024 025 [email or web address] Mando Dale MD, [address], [place], [address], 02/15/2025 12:10:27 gastroent erologist referral - Please call patient to schedule an appointme nt. Thank you. 2024 025 [email or web address] [facility], [address], [address], [place], [address], 02/15/2025 12:10:09 Procedures laryngosc opy, flexible fiberopti c (PROC) 2024 025 [facility] ([facility]), [address] [place], [address], 01/13/2025 04:18:19 injection /aspirati on joint/bur sa (PROC) 2024 025 [email or web address] 1 In-Office Order, Internal Use Only DO Not Attach Compendium DO Not Attach Compendium, Do Not Delete/merge, [id number] 08/18/2024 09:13:18 Surgeries None recorded. Imaging None recorded. Medication Orders cyclobenz aprine 10 mg tablet 2024 025 [facility]48797, [address] [place], [place], [id number], 01/19/2025 12:29:57 lidocaine 5 % topical patch 2024 025 [facility] #33870, [address], [place], [place], [id number], 01/19/2025 12:29:52 phentermi ne 30 mg capsule 2024 025 [facility] #64365, [address], [place], [place], [id number], 01/19/2025 12:29:50 losartan 50 mg tablet 2024 025 [facility] #38989, [address], [place], [place], [id number], 01/19/2025 12:29:56 atorvasta tin 20 mg tablet 2024 025 [facility] #09783, [address], [place], [place], [id number], 01/19/2025 12:29:51 cyclobenz aprine 10 mg tablet 2024 025 [facility] #77015, [address], [place], [place], [id number], 11/17/2024 09:16:19 lidocaine 5 % topical patch 2024 025 [facility] #72931, [address], [place], [place], [id number], 11/17/2024 09:16:21 tramadol 50 mg tablet 2024 025 [email or web address] [facility] #46903, [address], [place], [place], [id number], 11/17/2024 09:41:26 phentermi ne 30 mg capsule [id number] [facility] #35281, [address], [place], [place], [id number], 11/17/2024 09:16:12 losartan 50 mg tablet 2024 [facility] #87075, [address], [place], [place], [id number], 11/17/2024 09:40:17 atorvasta tin 20 mg tablet 2024 [facility] #93264, [address], [place], [place], [id number], 11/17/2024 09:16:17 cyclobenz aprine 10 mg tablet 2024 [facility] #22279, [address], [place], [place], [id number], 10/19/2024 09:29:52 lidocaine 5 % topical patch 2024 [facility] #28235, [address], [place], [place], [id number], 10/19/2024 09:24:58 losartan 25 mg tablet 2024 [email or web address] [facility] #70551, [address], [place], [place], [id number], 11/17/2024 09:13:32 atorvasta tin 20 mg tablet 2024 [facility] #09021, [address], [place], [place], [id number], 10/19/2024 09:25:13 phentermi ne 30 mg capsule 2024 025 [facility] #18144, [address], [place], [id number], 10/19/2024 09:25:04 bupivacai ne HCl 0.5 % (5 mg/mL) injection solution 2024 025 [email or web address] [facility] #66918, [address], [place], [place], [id number], 12/16/2024 11:53:48 Kenalog 10 mg/mL suspensio n for injection 2024 025 [email or web address] [facility] #65920, [address], [place], [place], [id number], 12/16/2024 11:53:55 Patient TargetsNo targets recorded. Patient Instructions Encounter Date Encounter Id Patient Instructions Last Modified By Organization Details Last Modified Time 10/19/2024 [id number] starting a weigh t loss plan: care instructions [email or web address] Not available 10/19/2024 09:24:45 11/17/2024 [id number] starting a weigh t loss plan: care instructions [email or web address] Not available 11/17/2024 09:16:03 12/16/2024 [id number] no lesions of th e larynx were seen but we will do an audiogram. [email or web address] Not available 12/16/2024 12:35:16 01/19/2025 [id number] starting a weigh t loss plan: care instructions [email or web address] Not available 01/19/2025 12:29:35 Reason for Referral [employer] Man Referral for Screening colonoscopy Please call patient to schedule an appointment. Thank you. Referring Physician: Gerber Zhang [facility], Encounter Date: 11/17/2024 ENT Surgery Referral for Gary ateral tinnitus Chronic tinntus and chronic sinus pressure Chronic tinntus and chronic sinus pressure. Please call patient to schedule an appointment. Thank you. Referring Physician: Gerber Zhang [facility], Encounter Date: 11/17/2024 Results Created Date Observation Date Name Description Value Unit Range Abnormal Flag Note LastModifiedBy Organization Detail LastModifiedTime 10/20/1910/19/2024 CBC/C OMPLE TE BLD COUNT W/DIF F white blood cells 4.8 x10'3 /uL 4.2-10 .8 Not Available [facility] (Lab) [address] [place], [address], 10/19/2024 14:21:59 10/20/19 25 10/19/2024 CBC/C OMPLE TE BLD COUNT W/DIF F red blood cells 4.83 x10'6 /uL 4.10-5 .80 Not Available [facility] (Lab) [address] [place], [address], 10/19/2024 14:21:59 10/20/19 25 10/19/2024 CBC/C OMPLE TE BLD COUNT W/DIF F hemoglobin 15.2 g/dL 13.2-1 7.0 Not Available [facility] (Lab) [address] [place], [address], 10/19/2024 14:21:59 10/20/19 25 10/19/2024 CBC/C OMPLE TE BLD COUNT W/DIF F hematocrit 44.7 % 39.3-5 0.0 Not Available [facility] (Lab) [address] [place], [address], 10/19/2024 14:21:59 10/20/19 25 10/19/2024 CBC/C OMPLE TE BLD COUNT W/DIF F mean red cell volume 92.5 fL 80.0-9 7.0 Not Available [facility] (Lab) [address] [place], [address], 10/19/2024 14:21:59 10/20/19 25 10/19/2024 CBC/C OMPLE TE BLD COUNT W/DIF F mean red cell hemoglobin 31.5 pg 27.0-3 3.0 Not Available [facility] (Lab) [address] [place], [address], 10/19/2024 14:21:59 10/20/19 25 10/19/2024 CBC/C OMPLE TE BLD COUNT W/DIF F mean RBC HGB concentratio n 34.0 g/dL 31.0-3 6.0 Not Available [facility] (Lab) [address] [place], [address], 10/19/2024 14:21:59 10/20/19 25 10/19/2024 CBC/C OMPLE TE BLD COUNT W/DIF F red cell distribution width 12.0 % 11.8-1 5.5 Not Available [facility] (Lab) [address] [place], [address], 10/19/2024 14:21:59 10/20/19 25 10/19/2024 CBC/C OMPLE TE BLD COUNT W/DIF F platelets 158 x10'3 /uL 150-40 0 Not Available [facility] (Lab) [address] [place], [address], 10/19/2024 14:21:59 10/20/19 25 10/19/2024 CBC/C OMPLE TE BLD COUNT W/DIF F mean platelet volume 10.9 fL 9.0-12 .4 Not Available [facility] (Lab) [address] [place], [address], 10/19/2024 14:21:59 10/20/19 25 10/19/2024 CBC/C OMPLE TE BLD COUNT W/DIF F neutrophils 59.0 % 39.0-7 2.0 Not Available [facility] (Lab) [address] [place], [address], 10/19/2024 14:21:59 10/20/19 25 10/19/2024 CBC/C OMPLE TE BLD COUNT W/DIF F lymphocytes 29.4 % 16.0-4 7.0 Not Available [facility] (Lab) [address] [place], [address], 10/19/2024 14:21:59 10/20/19 25 10/19/2024 CBC/C OMPLE TE BLD COUNT W/DIF F monocytes 8.3 % 5.0-12 .0 Not Available [facility] (Lab) [address] [place], [address], 10/19/2024 14:21:59 10/20/19 25 10/19/2024 CBC/C OMPLE TE BLD COUNT W/DIF F eosinophils 2.5 % 1.0-7. 0 Not Available [facility] (Lab) [address] [place], [address], 10/19/2024 14:21:59 10/20/19 25 10/19/2024 CBC/C OMPLE TE BLD COUNT W/DIF F basophils 0.4 % 0.0-2. 0 Not Available [facility] (Lab) [address] [place], [address], 10/19/2024 14:21:59 10/20/19 25 10/19/2024 CBC/C OMPLE TE BLD COUNT W/DIF F immature granulocytes 0.4 % 0.00-0 .50 Not Available [facility] (Lab) [address] [place], [address], 10/19/2024 14:21:59 10/20/19 25 10/19/2024 CBC/C OMPLE TE BLD COUNT W/DIF F neutrophils, absolute count 2.85 x10'3 /uL 1.5-8. 0 Not Available [facility] (Lab) [address] [place], [address], 10/19/2024 14:21:59 10/20/19 25 10/19/2024 CBC/C OMPLE TE BLD COUNT W/DIF F lymphocytes, absolute count 1.42 x10'3 /uL 1.07-3 .43 Not Available [facility] (Lab) [address] [place], [address], 10/19/2024 14:21:59 10/20/19 25 10/19/2024 CBC/C OMPLE TE BLD COUNT W/DIF F monocytes, absolute count 0.40 x10'3 /uL 0.29-0 .99 Not Available [facility] (Lab) [address] [place], [address], 10/19/2024 14:21:59 10/20/19 25 10/19/2024 CBC/C OMPLE TE BLD COUNT W/DIF F eosinophils, absolute count 0.12 x10'3 /uL 0.02-0 .53 Not Available [facility] (Lab) [address] [place], [address], 10/19/2024 14:21:59 10/20/19 25 10/19/2024 CBC/C OMPLE TE BLD COUNT W/DIF F basophils, absolute count 0.02 x10'3 /uL 0.01-0 .08 Not Available [facility] (Lab) [address] [place], [address], 10/19/2024 14:21:59 10/20/19 25 10/19/2024 CBC/C OMPLE TE BLD COUNT W/DIF F immature granulocytes ,absolute 0.02 x10'3 /uL 0.00-0 .05 Not Available [facility] (Lab) [address] [place], [address], 10/19/2024 14:21:59 10/20/19 25 10/19/2024 CBC/C OMPLE TE BLD COUNT W/DIF F nucleated red blood cells 0.0 % -0 Not Available [facility] (Lab) [address] [place], [address], 10/19/2024 14:21:59 10/20/19 25 10/19/2024 CBC/C OMPLE TE BLD COUNT W/DIF F NRBC# 0.00 x10'3 /uL Not Available [facility] (Lab) [address] [place], [address], 10/19/2024 14:21:59 10/20/19 25 10/19/2024 URINA LYSIS COMPL ETE/I RIS W/RFX color LIGHT- YELLOW Not Available [facility]) [address] [facility] [place], [address], 10/19/2024 14:24:11 10/20/19 25 10/19/2024 URINA LYSIS COMPL ETE/I RIS W/RFX appear CLEAR Not Available [facility] (Lab) [address] [place], [address], 10/19/2024 14:24:11 10/20/19 25 10/19/2024 URINA LYSIS COMPL ETE/I RIS W/RFX specific gravity 1.014 1.001- 1.030 Not Available [facility] (Lab) [address] [place], [address], 10/19/2024 14:24:11 10/20/19 25 10/19/2024 URINA LYSIS COMPL ETE/I RIS W/RFX pH 6.5 pH_un its 5.0-9. 0 Not Available [facility] (Lab) [address] [place], [address], 10/19/2024 14:24:11 10/20/19 25 10/19/2024 URINA LYSIS COMPL ETE/I RIS W/RFX leukocytes NEGATI VE vishal/u L negati ve- Not Available [facility] (Lab) [address] [place], [address], 10/19/2024 14:24:11 10/20/19 25 10/19/2024 URINA LYSIS COMPL ETE/I RIS W/RFX nitrite NEGATI VE negati ve- Not Available [facility] (Lab) [address] [place], [address], 10/19/2024 14:24:11 10/20/19 25 10/19/2024 URINA LYSIS COMPL ETE/I RIS W/RFX protein NEGATI VE mg/dL negati ve- Not Available [facility] (Lab) [address] [place], [address], 10/19/2024 14:24:11 10/20/19 25 10/19/2024 URINA LYSIS COMPL ETE/I RIS W/RFX glucose NORMAL mg/dL normal - Not Available [facility] (Lab) [address] [place], [address], 10/19/2024 14:24:11 10/20/19 25 10/19/2024 URINA LYSIS COMPL ETE/I RIS W/RFX ketones NEGATI VE mg/dL negati ve- Not Available [facility] (Lab) [address] [place], [address], 10/19/2024 14:24:11 10/20/19 25 10/19/2024 URINA LYSIS COMPL ETE/I RIS W/RFX urobilinogen NORMAL mg/dL normal - Not Available [facility] (Lab) [address] [place], [address], 10/19/2024 14:24:11 10/20/19 25 10/19/2024 URINA LYSIS COMPL ETE/I RIS W/RFX bilirubin NEGATI VE mg/dL negati ve- Not Available [facility] (Lab) [address] [place], [address], 10/19/2024 14:24:11 10/20/19 25 10/19/2024 URINA LYSIS COMPL ETE/I RIS W/RFX blood NEGATI VE mg/dL negati ve- Not Available [facility] (Lab) [address] [place], [address], 10/19/2024 14:24:11 10/20/19 25 10/19/2024 URINA LYSIS COMPL ETE/I RIS W/RFX white blood cells 0-8 /i??h pfi?? 0-8 Not Available [facility] ([facility]) [address] [place], [address], 10/19/2024 14:24:11 10/20/19 25 10/19/2024 URINA LYSIS COMPL ETE/I RIS W/RFX red blood cells 0-4 /i??h pfi?? 0-4 Not Available [facility] ([facility]) [address] [place], [address], 10/19/2024 14:24:11 10/20/19 25 10/19/2024 URINA LYSIS COMPL ETE/I RIS W/RFX bacteria NONE none seen- Not Available [facility] (Lab) [address] [place], [address], 10/19/2024 14:24:11 10/20/19 25 10/19/2024 URINA LYSIS COMPL ETE/I RIS W/RFX mucous OCCASI ONAL /i??l pfi?? none seen- abnormal Not Available [facility] (Lab) [address] [place], [address], 10/19/2024 14:24:11 10/20/19 25 10/19/2024 URINA LYSIS COMPL ETE/I RIS W/RFX squamous epithelial NONE /i??l pfi?? abnormal Not Available [facility] (Lab) [address] [place], [address], 10/19/2024 14:24:11 10/20/19 25 10/19/2024 COMPR EHENS MARYSE METAB OLIC PANEL sodium 137 mmol/ L 137-14 5 Not Available [facility] (Lab) [address] [place], [address], 10/19/2024 14:44:41 10/20/19 25 10/19/2024 COMPR EHENS MARYSE METAB OLIC PANEL potassium 4.4 mmol/ L 3.5-5. 1 Not Available [facility] (Lab) [address] [place], [address], 10/19/2024 14:44:41 10/20/19 25 10/19/2024 COMPR EHENS MARYSE METAB OLIC PANEL chloride 104 mmol/ L 98-107 Not Available [facility] (Lab) [address] [place], [address], 10/19/2024 14:44:41 10/20/19 25 10/19/2024 COMPR EHENS MARYSE METAB OLIC PANEL carbon dioxide 25 mmol/ L 22-30 Not Available [facility] (Lab) [address] [place], [address], 10/19/2024 14:44:41 10/20/19 25 10/19/2024 COMPR EHENS MARYSE METAB OLIC PANEL anion gap 12.4 mmol/ L 14-22 low Not Available [facility] (Lab) [address] [place], [address], 10/19/2024 14:44:41 10/20/19 25 10/19/2024 COMPR EHENS MARYSE METAB OLIC PANEL glucose 101 mg/dL 70-99 high Not Available [facility] (Lab) [address] [place], [address], 10/19/2024 14:44:41 10/20/19 25 10/19/2024 COMPR EHENS MARYSE METAB OLIC PANEL BUN 19 mg/dL 8-19 Not Available [facility] (Lab) [address] [place], [address], 10/19/2024 14:44:41 10/20/19 25 10/19/2024 COMPR EHENS MARYSE METAB OLIC PANEL creatinine 0.82 mg/dL 0.66-1 .25 Not Available [facility] (Lab) [address] [place], [address], 10/19/2024 14:44:41 10/20/19 25 10/19/2024 COMPR EHENS MARYSE METAB OLIC PANEL GFR >60 Refer ence Range : [place] ge GFR Healt hy Adult : >60 mL/mi n/1.7 3 m2 Chron ic Kidne y Disea se: 15-60 mL/mi n/1.7 3 m2 Kidne y Failu re: <15/m L/min /1.73 m2 www.n iddk. nih.g ov The MDRD study equat ion has not been valid ated in child monae <18 years of age; pregn ant women ; the elder ly >85 years of age; or in some racia l or ethni c subgr oups, such as Histx nics. Outsi de the valid ated brenda eters , estim ated GFR is less accur ate, requi ring clini hollis judgm ent on a case- by-ca se basis . Clini hollis inter preta tion for other races and ages must be made by the clini maris. The MDRD study equat ion has not been valid ated for the evalu ation of serum creat inine relat ed to nutri gerber l statu s or medic ation usage . For perso ns <18 years of age, a pedia tric GFR calcu lator is avail able on the [facility] websi te: https ://radha w.aura diaz.o rg/pr ofess ional s/kdo qi/gf r_cal culat or Not Available [facility] (Lab) [address] [place], [address], 10/19/2024 14:44:41 10/20/19 25 10/19/2024 COMPR EHENS MARYSE METAB OLIC PANEL alkaline phosphatase 64 U/L 38-126 Not Available [facility] (Lab) [address] [place], [address], 10/19/2024 14:44:41 10/20/19 25 10/19/2024 COMPR EHENS MARYSE METAB OLIC PANEL alanine aminotransfe rase 33 U/L 0-50 Not Available [facility] (Lab) [address] [place], [address], 10/19/2024 14:44:41 10/20/19 25 10/19/2024 COMPR EHENS MARYSE METAB OLIC PANEL aspartate aminotransfe rase 32 U/L 15-46 Not Available [facility] (Lab) [address] [place], [address], 10/19/2024 14:44:41 10/20/19 25 10/19/2024 COMPR EHENS MARYSE METAB OLIC PANEL bilirubin, total 0.60 mg/dL 0.20-1 .30 Not Available [facility] (Lab) [address] [place], [address], 10/19/2024 14:44:41 10/20/19 25 10/19/2024 COMPR EHENS MARYSE METAB OLIC PANEL calcium 9.6 mg/dL 8.4-10 .2 Not Available [facility] (Lab) [address] [place], [address], 10/19/2024 14:44:41 10/20/19 25 10/19/2024 COMPR EHENS MARYSE METAB OLIC PANEL total protein 6.6 g/dL 6.3-8. 2 Not Available [facility] (Lab) [address] [place], [address], 10/19/2024 14:44:41 10/20/19 25 10/19/2024 COMPR EHENS MARYSE METAB OLIC PANEL albumin 4.3 g/dL 3.4-5. 0 Not Available [facility] (Lab) [address] [place], [address], 10/19/2024 14:44:41 10/20/19 25 10/19/2024 COMPR EHENS MARYSE METAB OLIC PANEL globulin 2.3 g/dL 2.6-4. 2 low Not Available [facility] (Lab) [address] [place], [address], 10/19/2024 14:44:41 10/20/19 25 10/19/2024 COMPR EHENS MARYSE METAB OLIC PANEL A/G ratio 1.9 ratio 1.0-2. 0 Not Available [facility] (Lab) [address] [place], [address], 10/19/2024 14:44:41 10/20/19 25 10/19/2024 MAGNE SIUM magnesium 2.0 mg/dL 1.6-2. 3 Not Available [facility] (Lab) [address] [place], [address], 10/19/2024 14:44:45 10/20/19 25 10/19/2024 URIC ACID SERUM uric acid 5.4 mg/dL 3.5-8. 5 Not Available [facility] (Lab) [address] [place], [address], 10/19/2024 14:44:47 10/20/19 25 10/19/2024 TSH W/REF ANTHONY FT4 TSH with reflex free T4 2.730 uIU/m L 0.465- 4.680 Not Available [facility] (Lab) [address] [place], [address], 10/19/2024 15:19:46 10/20/19 25 10/19/2024 PSA SCREE N PSA medicare screen 1.31 NG/mL 0.00-4 .00 Not Available [facility] (Lab) [address] [place], [address], 10/19/2024 15:19:47 10/20/19 25 10/19/2024 VITAM IN D 25-HY DROXY vd25oh 65.4 NG/mL 30-100 Vitam in D Statu s: Defic ient: <20 ng/mL Insuf ficie nt: 20-29 ng/mL Suffi cient : 30-10 0 ng/mL Not Available [facility] (Lab) [address] [place], [address], 10/19/2024 15:26:57 10/20/19 25 10/19/2024 VITAM IN B12 (MARGA AARON ) vb12 441 pg/mL 239-93 1 Not Available [facility] (Lab) [address] [place], [address], 10/19/2024 15:51:55 10/20/19 25 10/19/2024 FOLAT E, SERUM /PLAS MA folate 13.7 NG/mL 2.76-2 0.0 Not Available [facility] (Lab) [address] [place], [address], 10/19/2024 15:51:57 10/20/19 25 10/19/2024 HEMOG LOBIN A1C HA1C 5.5 % 4.0-6. 0 Diabe bob Scree arlette Crite alexandra: <5.7% Consi stent with absen ce of diabe bob 5.7-6 .4% Consi stent with incre ased risk for diabe bob (pred iabet es) >OR=6 .5% Consi stent with diabe bob REFER ENCE: Diabe bob Care 2016, 39(Beasley ppl.1 ):s13 -s22 Not Available [facility] (Lab) [address] [place], [address], 10/19/2024 22:17:41 08/27/19 25 08/26/2024 injec tion, hip, fluor o lissa nce (PROC ) No observ ation record ed. [address] ([employer]) [address] [place], [address], 10/19/2024 09:18:46 08/27/19 25 08/26/2024 injec tion, hip, fluor o lissa nce (PROC ) No observ ation record ed. [email or web address] [place] [address] ([employer]) [address] [facility], [place], [address], 10/19/2024 09:18:46 01/13/20 25 01/10/2025 audio gram + tympa nogra m No observ ation record ed. [address] (Audiology) [address] [facility] [address], [place], [address], 01/19/2025 12:25:29 01/15/20 25 01/14/2025 audio gram + tympa nogra m No observ ation record ed. [address] (Audiology) [address] [facility] [address], [place], [address], 01/19/2025 12:25:29 Result Notes None recorded. Problems Name Problem SNOMED Code Status Onset Date Resolution Date Notes Provider Name and Address Organization Details Recorded Time Acute bronchiti s 29448162 Completed Not Available [facility] 3 01:03:05 Irritable bowel syndrome 85561646 Active Not Available [facility] 3 01:03:05 Nocturia 362094804 Completed Not Available [facility] 3 01:03:05 Pain in throat 440202596 Completed Not Available [facility] 3 01:03:05 Lesion of radial nerve 326395455 Completed Not Available [facility] 3 01:03:05 Pain of joint of wrist 442201985 Completed Not Available [facility] 3 01:03:05 Lateral epicondyl itis 898206542 Completed Not Available [facility] 3 01:03:06 Fluid level behind tympanic membrane Completed Not Available [facility] 3 01:03:06 Neuropath ic pain 430587671 Completed Not Available [facility] 3 01:03:06 Crohn's disease 06149764 Completed Not Available [facility] 3 01:03:06 Sinusitis 20217333 Completed Not Available [facility] 3 01:03:07 Onychomyc osis 011683321 Completed Not Available [facility] 3 01:03:07 Pain in forearm 466936742 Completed Not Available [facility] 3 01:03:07 Anxiety 56599767 Completed Not Available [facility] 3 01:03:08 Upper respirato ry infection 92156441 Completed Not Available [facility] 3 01:03:09 Hyperlipi demia 17108606 Active Not Available [facility] 3 01:03:09 Nasal congestio n 00331363 Completed Not Available [facility] 3 01:03:09 Hemorrhoi ds 66210260 Active Not Available [facility] 3 01:03:09 Posterior rhinorrhe a 81762426 Completed Not Available [facility] 3 01:03:09 Kidney stone 22808959 Completed Not Available [facility] 3 01:03:10 Gastroeso phageal reflux disease without esophagit is 770838586 Active 2018 Not Available [facility] 3 01:03:06 Seasonal allergic rhinitis 988597894 Active 2018 Not Available [facility] 3 01:03:07 Obesity 912670454 Active 2018 Not Available [facility] 3 01:03:07 Pain of right shoulder joint 50057560055 544499 Active 2018 Not Available [facility] 3 01:03:05 Family history of Arthritis 752125083 Active 2019 Not Available [facility] 3 01:03:06 Polyarthr opathy 59362578 Active 2019 Not Available [facility] 3 01:03:06 Elevated blood-pre ssure reading without diagnosis of hypertens ion 125262706 Active 2019 Not Available [facility] 3 01:03:07 Complaini ng of erectile dysfuncti on Active 2019 Not Available [facility] 3 01:03:08 Fatigue 44789708 Active 2019 Not Available [facility] 3 01:03:10 Bilateral tinnitus 89764511712 02 Active 2019 Gerber Zhang MD [address], [place], [address] , [employer] [facility] 5 09:18:50 Primary erectile dysfuncti on 480923786 Active 2020 Not Available [facility] 3 01:03:08 Persisten t insomnia 356647766 Active 2021 Not Available [facility] 3 01:03:05 Bronchiti s 36203153 Active 2021 Not Available [facility] 3 01:03:06 Cough 15136523 Active 2021 Not Available [facility] 3 01:03:08 Family history of Cardiovas cular disease 821738708 Active 2022 Gerber Zhang MD [address], [place], [address] , [employer] [facility] 3 12:14:30 Benign prostatic hyperplas ia without outflow obstructi on 292824142 Active 2022 Gerber Zhang MD [address], [place], [address] , [employer] [facility] 3 12:28:21 Chronic insomnia 342586874 Active 2022 Gerber Zhang MD [address], [place], [address] , [employer] [facility] 3 12:30:34 Erectile dysfuncti on 189950654 Active 2022 Gerber Zhang MD [address], [place], [address] , [employer] [facility] 3 12:44:19 Hypertens maryse disorder 65865649 Active 2023 Gerber Zhang MD [address], [place], [address] , [employer] [facility] 4 09:55:21 Acute bacterial sinusitis 89494224 Active 2023 JERAMY Darden [address], [place], [address] , [facility] 4 12:53:14 Pain of right hip joint 76980342229 9102 Active 2023 Gerber Zhang MD [address], [place], [address] , [facility] 4 10:55:50 Chronic low back pain 626191771 Active 2023 Gerber Zhang MD [address], [place], [address] , [facility] 4 10:57:25 Degenerat ion of lumbar intervert ebral disc 75301050 Active 2023 Gerber Zhang MD [address], [place], [address] , [facility] 4 17:44:23 Folliculi tis 69536258 Active 2023 Gerber Zhang MD [address], [place], [address] , [facility] 4 17:53:30 Pain of left hip joint 85637045354 9100 Active 2023 YVONNE Andujar null, [facility] 4 14:49:46 Low back pain 270376147 Active 2023 Gilda Rebollar null, [facility] 4 15:25:11 Lumbar spondylos is 674888784 Active 2023 Gerber Zhang MD [address], [place], [address] , [facility] 4 12:07:46 Stenosis of spinal canal due to intervert ebral disc 484510377 Active 2023 Gerber Zhang MD [address], [place], [address] , [facility] 4 12:08:06 Spinal stenosis of lumbar region 43467059 Active 2024 Gerber Zhang MD [address], [place], [address] , [facility] 5 14:13:34 Pain of bilateral hip joints 49790380238 188687 Active 2024 BARBI AndujarA null, [facility] 5 08:54:44 Osteoarth ritis of hip 725856797 Active 2024 Mary Edgar, ATC L null, [facility] 5 16:57:07 Bilateral hearing loss of ears caused by noise 48288941168 72668 Active 2024 Mando Dale MD [address], [place], [address] , [facility] 5 12:34:30 Dysphonia 78409660 Active 2024 Mando Dale MD [address], [place], [address] , [facility] 5 12:34:53 Noise effects on inner ear 58360553 Active 2024 Gilda Keturah null, [facility] 5 13:10:50 Erectile dysfuncti on due to psychophy siologic disorder 368811232 Active 2024 Gerber Zhang MD [address], [place], [address] , [facility] 5 12:33:37 Problem Notes None recorded. Procedures Surgical History Date Name Laterality Status Provider Name and Address Organization Details Recorded Time Revise arm/leg nerve completed Not Available [facility] 07/31/2022 00:48:09 Tonsillectomy completed Malika Knox CNA [facility] 12/16/2024 12:01:56 Orthopedic Procedure completed Not Available [facility] 07/31/2022 00:48:09 colonoscopy completed Not Available [facility] 07/31/2022 00:48:09 Hernia Repair completed Not Available [facility] 07/31/2022 00:48:09 Carpal tunnel surgery completed Not Available [facility] 07/31/2022 00:48:09 repair of elbow completed Not Available [facility] 07/31/2022 00:48:09 Imaging Results None recorded. Procedure Notes None recorded. Medical Equipment None Reported. Allergies Allergen ID Allergen Name Allergen Category Reaction Reaction Severity Criticality Documentation Date Start Date Code Code System Note Provider Name and Address Organization Details Recorded Time 2116 Lamisil medicatio n other Not available Not available 07/31/2022 12349 6 RxNorm TABS- STOMA CH PAIN Not Available [facility] 01:21:17 56867 trazodone medicatio n other moderate Not available 11/24/2023 66768 RxNorm lasts longe r makes pt foggy the follo Faina Cates RN null, [place] [facility] [place] [facility] 5 11:14:18 Medications Name Sig Start Date Stop Date Status Note LastModified by Organization Details LastModified Time losartan 50 mg tablet TAKE 1 TABLET BY MOUTH EVERY DAY DIRECTED active Not Available Not Available No t Available cyclobenza lorelei 10 mg tablet Take 1 tablet every 12 hours by oral route as needed for 30 days. 2024 active Not Available Not Available Not Avai lable prednisone 10 mg tablet Take 1 tablet every day by oral route as directed for 7 days. active Take 60mg on day 1,2; Than 40mg on day 3,4; Than 20mg on day 5,6,7. Take with food, do not take on empty stomac h. Not Available Not Available Not Available cefuroxime axetil 250 mg tablet TK 1 T PO BID 09/02 completed Not Available Not Available Not Available atorvastat in 20 mg tablet TAKE 1 TABLET BY MOUTH EVERY NIGHT AT BEDTIME active Not Available Not Available No t Available ipratropiu m 0.5 mg-albuter ol 3 mg (2.5 mg base)/3 mL nebulizati on soln Inhale 3 mL 4 times a day by nebulizat ion route. 04/03 completed Not Available Not Available Not Available albuterol sulfate 2.5 mg/3 mL (0.083 %) solution for nebulizati on Inhale 3 mL 3 times a day by nebulizat ion route. active Not Available Not Available No t Available trazodone 50 mg tablet Take 1 tablet every day by oral route at bedtime for 90 days. 01/21 completed Not Available Not Available Not Available cetirizine 10 mg tablet TAKE 1 TABLET BY MOUTH DAILY 12/16 completed Not Available Not Available Not Available atorvastat in 10 mg tablet TAKE 1 TABLET BY MOUTH EVERY DAY AT BEDTIME 08/07 completed Not Available Not Available Not Available azithromyc in 250 mg tablet Use as directed. active Not Available Not Available No t Available pravastati n 40 mg tablet TK 1 T PO QD 03/22 completed Not Available Not Available Not Available ibuprofen 800 mg tablet TAKE 1 TABLET BY MOUTH THREE TIMES DAILY NEEDED FOR PAIN active Not Available Not Available No t Available benzonatat e 200 mg capsule TAKE 1 CAPSULE BY MOUTH THREE TIMES DAILY FOR 10 DAYS NEEDED FOR COUGH 10/14 completed Not Available Not Available Not Available hydrocodon e 5 mg-acetami nophen 325 mg tablet active Not Available Not Available No t Available Celestone Soluspan 6 mg/mL suspension for injection active [facility]#: [id number] 566-05 Not Available Not Available Not Available meloxicam 15 mg tablet TAKE 1 TABLET BY MOUTH EVERY DAY 07/28 completed Not Available Not Available Not Available bupivacain e HCl 0.5 % (5 mg/mL) injection solution Take 8 mL by injection route. 12/16 completed Not Available Not Available Not Available prednisone 20 mg tablet TAKE 2 TABLETS BY MOUTH DAILY FOR 5 DAYS FOR COUGH 10/14 completed Not Available Not Available Not Available phentermin e 15 mg capsule TAKE 1 CAPSULE BY MOUTH EVERY DAY BEFORE BREAKFAST 10/19 completed Not Available Not Available Not Available phentermin e 37.5 mg tablet TAKE 1 TABLET BY MOUTH EVERY OTHER DAY BEFORE BREAKFAST 10/19 completed Not Available Not Available Not Available sulfametho xazole 800 mg-trimeth oprim 160 mg tablet TAKE 1 TABLET BY MOUTH EVERY 12 HOURS FOR 10 DAYS DIRECTED 12/16 completed Not Available Not Available Not Available tramadol 50 mg tablet TAKE 1 TABLET BY MOUTH EVERY 12 HOURS FOR 15 DAYS NEEDED active Not Available Not Available No t Available sildenafil 100 mg tablet TAKE 1 TABLET BY MOUTH NEEDED 30 TO 40 MINUTES BEFORE INTERCOUR SE. NOT TO EXCEED 1 TABLET IN 24 HOURS 12/16 completed Not Available Not Available Not Available phentermin e 30 mg capsule TAKE 1 CAPSULE BY MOUTH EVERY DAY BEFORE BREAKFAST active Not Available Not Available No t Available Depo-Medro l 80 mg/mL suspension for injection 80 mg by injection route. 08/26 completed Not Available Not Available Not Available hydrocorti sone acetate 25 mg rectal suppositor y Insert 1 supposito ry twice a day by rectal route for 14 days. 11/01 completed Not Available Not Available Not Available ketorolac 10 mg tablet active Not Available Not Available Not Available Kenalog 40 mg/mL suspension for injection Take 40 mg as needed by injection route. 03/22 completed [facility]# [id number] Not Available Not Available Not Available meloxicam 7.5 mg tablet TAKE 1 TABLET BY MOUTH EVERY DAY AFTER A MEAL NEEDED FOR PAIN 11/23 completed Not Available Not Available Not Available oxycodone- acetaminop hen 5 mg-325 mg tablet active Not Available Not Available Not Available tamsulosin 0.4 mg capsule Take 1 capsule every day by oral route at bedtime for 90 days. 12/16 completed Not Available Not Available Not Available trazodone 100 mg tablet TAKE 1 TABLET BY MOUTH EVERY DAY AT BEDTIME 10/19 completed Not Available Not Available Not Available Xylocaine 10 mg/mL (1 %) injection solution 20 mL by injection route. 08/26 completed Not Available Not Available Not Available Kenalog 10 mg/mL suspension for injection Take 2 mL by injection route. 12/16 completed ND: [id number] Not Available Not Available Not Available diazepam 2 mg tablet active Not Available Not Available No t Available baclofen 10 mg tablet active Not Available Not Available Not Available benzonatat e 100 mg capsule Take 2 capsules 3 times a day by oral route as needed for 5 days. active Not Available Not Available No t Available pantoprazo le 40 mg tablet,del ayed release Take 1 tablet every day by oral route. 08/07 completed Not Available Not Available Not Available lidocaine 5 % topical patch APPLY 1 PATCH BY TOPICAL ROUTE ONCE DAILY (MAY WEAR UP TO 12 HOURS.) 2024 active Not Available Not Available Not Avai lable losartan 25 mg tablet TAKE 1 TABLET BY MOUTH EVERY DAY DIRECTED 11/17 completed Not Available Not Available Not Available gabapentin 300 mg capsule Take 1 capsule every 8 hours by oral route as directed for 30 days. 08/16 completed Not Available Not Available Not Available omeprazole 20 mg capsule,de layed release TAKE 1 CAPSULE BY MOUTH EVERY DAY IN THE MORNING active Not Available Not Available No t Available diclofenac sodium 75 mg tablet,del ayed release Take 1 tablet by oral route with food every 12 hrs as needed. active Not Available Not Available No t Available montelukas t 10 mg tablet TAKE 1 TABLET BY MOUTH EVERY DAY IN THE EVENING DIRECTED 12/16 completed Not Available Not Available Not Available hydrocodon e 5 mg-acetami nophen 500 mg tablet active Not Available Not Available No t Available codeine 10 mg-guaifen esin 100 mg/5 mL oral liquid TK 10 ML PO Q 6 TO 8 H FOR 5 DAYS PRN COU WHEN AT HOME OR BEFORE BED active Not Available Not Available No t Available ceftriaxon e 500 mg solution for injection active [facility]#: [id number] 338-01 Not Available Not Available Not Available zolpidem 5 mg tablet TAKE 1 TABLET BY MOUTH EVERY DAY NEEDED 12/23 completed Not Available Not Available Not Available azelastine 137 mcg (0.1 %) nasal spray USE 2 SPRAYS IN EACH NOSTRIL TWICE DAILY 12/16 completed Not Available Not Available Not Available zolpidem 10 mg tablet TAKE 1 TABLET BY MOUTH AT BEDTIME NEEDED FOR SLEEP active Not Available Not Available No t Available methylpred nisolone 4 mg tablets in a dose pack FOLLOW PACKAGE DIRECTION S 10/19 completed Not Available Not Available Not Available ipratropiu m bromide 42 mcg (0.06 %) nasal spray USE 2 SPRAYS IN EACH NOSTRIL FOUR TIMES DAILY 12/16 completed Not Available Not Available Not Available Isovue-300 61 % intravenou s solution 30 mL by intraven. route. 03/27/ 2025 03/27 /2025 completed Not Available Not Available Not Available fluticason e propionate 50 mcg/actuat ion nasal spray,susp ension SHAKE LIQUID AND USE 2 SPRAYS IN EACH NOSTRIL EVERY DAY IN THE MORNING 12/16 completed Not Available Not Available Not Available loratadine 10 mg tablet TAKE 1 TABLET BY MOUTH EVERY DAY IN THE MORNING 12/25 completed Not Available Not Available Not Available fluticason e propionate 110 mcg/actuat ion HFA aerosol inhaler INHALE 2 PUFFS BY MOUTH TWICE DAILY 12/16 completed Not Available Not Available Not Available amoxicilli n 875 mg-potassi um clavulanat e 125 mg tablet TAKE 1 TABLET BY MOUTH EVERY 12 HOURS WITH MEALS FOR 5 DAYS 10/19 completed Not Available Not Available Not Available oxycodone 5 mg tablet 03/22 completed Not Available Not Available Not Available duloxetine 30 mg capsule,de layed release TAKE 1 CAPSULE BY MOUTH DAILY FOR 1 WEEK; THEN INCREASE TO 60MG CAPSULES 03/22 completed Not Available Not Available Not Available pregabalin 50 mg capsule Take 1 capsule every 12 hours by oral route as directed for 30 days. active Not Available Not Available No t Available Lyrica 75 mg capsule TAKE 1 CAPSULE BY MOUTH TWICE DAILY. 03/22 completed Not Available Not Available Not Available chlorhexid ine gluconate 0.12 % mouthwash USE 1/2 OUNCE AND SWISH IN MOUTH FOR 30 SECONDS THEN SPIT OUT 2-3 TIMES A DAY active Not Available Not Available No t Available Claritin otc for seasonal allergies 12/16 completed Not Available Not Available Not Available lidocaine (PF) 10 mg/mL (1 %) injection solution In office injection administe red by the provider 06/23 completed [facility]: [id number] Not Available Not Available Not Available mesalamine 1.2 gram tablet,del ayed release TAKE 2 TABLETS BY MOUTH EVERY DAY 12/25 completed Not Available Not Available Not Available budesonide -formotero l HFA 160 mcg-4.5 mcg/actuat ion aerosol inhaler INL 2 PFS PO BID FOR 14 DAYS 04/03 completed Not Available Not Available Not Available levocetiri zine 5 mg tablet Take 1 tablet every day by oral route in the morning for 90 days. 11/01 completed Not Available Not Available Not Available azelastine 205.5 mcg (0.15 %) nasal spray [place] 2 sprays twice a day by intranasa l route for 30 days. active Not Available Not Available No t Available ProChamber USE DIRECTED 12/16 completed Not Available Not Available Not Available Suprep Bowel Prep Kit 17.5 gram-3.13 gram-1.6 gram oral solution MIX AND DRINK UTD 08/09 completed Not Available Not Available Not Available Rectiv 0.4 % (w/w) ointment active Not Available Not Available Not Available Jublia 10 % topical solution with applicator APPLY TO AFFECTED TOENAIL(S ) BY TOPICAL ROUTE ONCE DAILY active Not Available Not Available No t Available Belsomra 10 mg tablet Take 1 tablet every day by oral route as directed for 30 days. 10/19 completed Not Available Not Available Not Available Afluria Qd 2018- (36 mos up)(PF)60 mcg (15 mcg x4)/0.5 mL IM syringe active Not Available Not Available N ot Available COVID-19 test specimen collection TEST DIRECTED 04/16 completed Not Available Not Available Not Available Flucelvax Quad (PF) 60 mcg (15 mcg x 4)/0.5 mL IM syringe active Not Available Not Available N ot Available Wegovy 1 mg/0.5 mL subcutaneo us pen injector Inject 1 mg every week by subcutane ous route for 30 days. 08/16 completed Not Available Not Available Not Available Wegovy 0.25 mg/0.5 mL subcutaneo us pen injector ADMINISTE R 0.25 MG UNDER THE SKIN EVERY WEEK DIRECTED 06/09 completed Not Available Not Available Not Available Vitals Date Recorded Body height Body mass index (BMI) Body weight Provider Name and Address Organization Details Last Updated DateTime 08/18/2024 175.26 cm 33.2 kg/m2 701254.28 g YVONNE Andujar [place] - [facility] 08/18/2024 08:53:17 Date Recorded Body height Body mass index (BMI) Body weight Body temperature Oxygen saturation Oxygen saturation in Arterial blood by Pulse oximetry Heart rate Systolic And Diastolic Provider Name and Address Organization Details Last Updated DateTime 5 175.26 cm 33.9 kg/m2 902645. 4 g 98.4 [degF] 99 % 99 % 81 /min 144/82 mm[Hg] Faina Cates RN [facility] [employer] [facility] 5 09:13:14 Date Recorded Body height Body mass index (BMI) Body weight Body temperature Oxygen saturation Oxygen saturation in Arterial blood by Pulse oximetry Heart rate Systolic And Diastolic Provider Name and Address Organization Details Last Updated DateTime 5 175.26 cm 33.5 kg/m2 142699. 82 g 98.4 [degF] 97 % 97 % 83 /min 158/84 mm[Hg] Faina Cates RN [facility] [employer] [facility] 5 09:11:05 Date Recorded Body height Body mass index (BMI) Body weight Body temperature Provider Name and Address Organization Details Last Updated DateTime 12/16/2024 175.26 cm 33 kg/m2 810681.54 g 97.2 [degF] Malika JOON [place] [employer] [facility] 12/16/2024 12:04:27 Date Recorded Body height Body mass index (BMI) Body weight Body temperature Oxygen saturation Oxygen saturation in Arterial blood by Pulse oximetry Heart rate Systolic And Diastolic Provider Name and Address Organization Details Last Updated DateTime 5 175.26 cm 32.8 kg/m2 467455. 56 g 97.9 [degF] 99 % 99 % 77 /min 140/82 mm[Hg] Faina Cates RN [facility] [employer] [facility] 5 12:24:10 Social History Question Answer Notes LastModified by Organizat ion Details LastModified Time Tobacco Smoking Status Never Smoker Not Available [employer] 07/31/2022 00:47:11 Do You Have An Advance Directive? No [id number] Information not available 07/31/2022 Do You Wear A Helmet When Biking? Yes MIGRATION.26 Information not available 07/31/2022 In The 14 Days Before Symptom Onset, Have You Had Close Contact With A Laboratory-confir med COVID-19 While That Case Was Ill? No MIGRATION.26 Information not available 07/31/2022 In The 14 Days Before Symptom Onset, Have You Had Close Contact With A Person Who Is Under Investigation For COVID-19 While That Person Was Ill? No MIGRATION.[id number] Information not available 07/31/2022 What Type Of Diet Are You Following? REGULAR MIGRATION.[id number] [id number] Information not available 07/31/2022 What Is The Highest Grade Or Level Of School You Have Completed Or The Highest Degree You Have Received? [id number] MIGRATION.89909 72171 Information not available 07/31/2022 Have There Been Any Changes To Your Family Or Social Situation? No MIGRATION.21668 77504 Information not available 07/31/2022 Are There Any Guns Present In Your Home? No MIGRATION.50547 41080 Information not available 07/31/2022 Where Do You Live? [place] MIGRATION.35064 88696 Information not available 07/31/2022 Do You Have A Medical Power Of Warhead Maintenance Specialist? No MIGRATION.38417 04689 Information not available 07/31/2022 What Was The Date Of Your Most Recent Tobacco Screening? 12/16/2024 [email or web address] Information not available 12/16/2024 Do You Have Any Pets? Yes MIGRATION.72332 92997 Information not available 07/31/2022 What Is Your Relationship Status? MIGRATION.61595 21783 Information not available 07/31/2022 Do You Use Your Seat Belt Or Car Seat Routinely? Yes MIGRATION.42456 53332 Information not available 07/31/2022 Do You Have Smoke And Carbon Monoxide Detectors In Your Home? Yes MIGRATION.37548 54908 Information not available 07/31/2022 Are You Passively Exposed To Smoke? No MIGRATION.77986 61169 Information not available 07/31/2022 Are There Any Smokers In Your House? No MIGRATION.36749 47819 Information not available 07/31/2022 Do You Participate In Social Media? No MIGRATION.16146 49667 Information not available 07/31/2022 Have You Recently Traveled Abroad? No MIGRATION.18030 98350 Information not available 07/31/2022 Are You Currently In School? No MIGRATION.57948 98897 Information not available 07/31/2022 Do You Have Any Dietary Restrictions? No MIGRATION.05589 45222 Information not available 07/31/2022 Sex: Male Functional Status Question Answer Note LastModified by Organizat ion Details LastModified Time Do you or have you ever used any other forms of tobacco or nicotine? No [email or web address] Information not available 10/19/2024 What is your level of alcohol consumption? Occasional [email or web address] Information not available 10/19/2024 What is your occupation? [employer] MIGRATION.[id number] 026 Information not available 07/31/2022 What is your exercise level? Occasional MIGRATION.[id number] 026 Information not available 07/31/2022 Mental Status Question Answer Note LastModified by Organizat ion Details LastModified Time Do you feel stressed (tense, restless, nervous, or anxious, or unable to sleep at night)? [id number] MIGRATION.[id number] Information not available 07/31/2022 Family History Relationship Description Onset Age of this Age Resolved Age Notes LastModified by Organization Details LastModified Time Unspecified Relation Malignant neoplasm of lung [email or web address] Not available 08/18 08:52:06 Unspecified Relation Coronary arterioscler osis Not available 08/18 08:52:06 Unspecified Relation Congestive heart failure [email or web address] Not available 08/18 08:52:06 Unspecified Relation Arthritis [email or web address] Not available 07/31 08:52:06 Unspecified Relation Renal failure syndrome [email or web address] Not available 08/18 08:52:06 Unspecified Relation Malignant neoplasm of prostate [email or web address] Not available 08/18 08:52:06 Unspecified Relation Myocardial infarction [id number] Not available 07/31/2022 00:48:18 Unspecified Relation Diabetes mellitus MIGRATION.[id number] Not available 07/31/2022 00:48:18 Notes:NO ENT Medical History Condition Response BLINDNESS N RHEUMATIC FEVER N KIDNEY STONES N BLADDER PROBLEMS N MRSA N OTHER # 1 N POLIO N LUNG DISEASE/DISORDER N COPD N RADIATION / CHEMOTHERAPY N Other # 2 N BLOOD DISEASES N SURGERY N EAR OR HEARING PROBLEMS N MUMPS N FEMALE PROBLEMS / INFECTIONS N DEPRESSION (INCLUDING POST ) N BOWEL PROBLEMS N STROKE/TIA N THYROID DISEASE N ULCERS N BENIGN PROSTATIC HYPERPLASIA N MEASLES N CERVICALGIA N TB SKIN TEST N MYOCARDIAL INFARCTION N OBESITY N PARAP[place]IA N GERD/NAUSEA N ANEURYSM N URINARY/BLADDER/KIDNEY PROBLEMS N CORONARY ARTERY DISEASE (CAD) N MENIERE'S DISEASE N ADDICTION CONCERNS N ENDOMETRIOSIS N USE OF BLOOD THINNERS N SKIN PROBLEMS N EMPHYSEMA N GASTROINTESTINAL DISORDER N MUSCLE,JOINT OR BONE PROBLEMS N GASTROINTESTINAL BLEEDING N BLOOD CLOTS N ASTHMA N CATARACTS N ERECTILE DYSFUNCTION N GI PROBLEMS N CHF N Low Testosterone N NEUROPATHY N INFERTILITY N AIDS/HIV N FRACTURES N CHEMOTHERAPY / RADIATION N VISION/EYE PROBLEMS N LIVER DISEASE N MALE HYPOGONADISM N HYPERTENSION Y ANXIETY DISORDER N BLOOD TRANSFUSION N ANEMIA/BLOOD DISORDER N CHRONIC EAR INFECTIONS N BRONCHITIS N TUBERCULOSIS N GLAUCOMA N FOOT PROBLEM N DIVERTICULITIS N SLEEP APNEA N CHICKENPOX N ALLERGIES/HAYFEVER N INFECTIOUS DISEASE N PROSTATE N HEART ARRHYTHMIA N INSOMNIA N HIGH CHOLESTEROL / HYPERLIPIDEMIA Y HYPERTHYROIDISM N EYE PROBLEMS N EATING DISORDER N NEUROLOGICAL PROBLEMS N EDEMA N CHRONIC PAIN SYNDROME N HYPOTHYROIDISM N CONSTIPATION N CAROTID BLOCKAGE N BACK / NECK PROBLEMS N HAVE YOU BEEN HOSPITALIZED OR SEEN IN [facility] IN THE PAST YEAR ? N ATHEROSCLEROSIS N BREAST PROBLEMS N DIALYSIS N ECZEMA N FIBROMYALGIA N OSTEOPOROSIS N ARTHRITIS N NO SIGNIFICANT PAST MEDICAL HISTORY N APPENDICITIS N DIABETES, TYPE N BAD TEETH N HEARTBURN / REFLUX N AFIB N ADD/ADHD N AUTISM SPECTRUM DISORDER (ASD) N HEPATITIS / LIVER DISEASE N PULMONARY DISEASE N GOUT N SLEEP DISORDER N ALZHEIMER'S DISEASE N PAIN N HERPES N DEMENTIA N SEIZURES/EPILEPSY N HEADACHES/MIGRAINES N VASCULAR DISEASE N PACEMAKER N DIZZINESS N KIDNEY DISEASE N HEART DISEASE/HEART PROBLEMS N SCARLET FEVER N MULTIPLE SCLEROSIS N MENTAL DISORDER/ILLNESS N DEVELOPMENTAL OR BEHAVIORAL DISORDERS N CARDIAC ARRHYTHMIA N CANCER: SPECIFY N PNEUMONIA N Gall Stones N ATRIAL FIBRILLATION N PULMONARY EMBOLISM N AUTOIMMUNE DISEASE N Immunizations Vaccine Type Date Status Note Provider Nam e and Address Organization Details Recorded Time Influenza, split virus, trivalent, preservative 5 completed Not Available [facility] 07/31/2022 01:21:01 Influenza, split virus, trivalent, preservative 4 completed Not Available [facility] 07/31/2022 01:21:01 Influenza, split virus, trivalent, preservative 0 completed Not Available [facility] 07/31/2022 01:21:02 pneumococcal polysaccharide PPV23 0 completed Not Available [facility] 07/31/2022 01:21:02 Tdap 9 completed Not Available [facility] 07/31/2022 01:21:02 Influenza, split virus, quadrivalent, PF completed Not Available [facility] 07/31/2022 01:21:02 Past Encounters Encounter ID Performer Location Encounter Start Date Encounter Closed Date Diagnosis/Indication Diagnosis SNOMED-CT Code Diagnosis ICD10 Code Diagnosis IMO Codes Diagnosis Note [id number] Gerber Zhang MD [facility] [address] [place] [address] 07/31/2020 00:00:00 07/31/2020 10:45:12 [id number] Gerber Zhang MD [facility] [address] [place] [address] 08/07/2020 00:00:00 08/07/2020 09:34:32 [id number] Gerber Zhang MD [facility] [address] [place] [address] 09/14/2020 00:00:00 09/14/2020 10:04:54 [id number] Gerber Zhang MD [facility] [address] [place] [address] 11/01/2020 00:00:00 11/01/2020 11:57:26 [id number] Gerber Zhang MD [facility] [address] [place] [address] 11/27/2020 00:00:00 11/27/2020 09:08:03 [id number] Gerber Zhang MD [facility] [address] [place] [address] 11/30/2020 00:00:00 11/30/2020 17:05:27 [id number] Zhang MD [facility] [address] [place] [address] 12/25/2020 00:00:00 12/25/2020 11:40:36 [id number] Gerber Zhang MD [facility] [address] [place] [address] 01/22/2021 00:00:00 01/22/2021 09:34:09 [id number] Gerber Zhang MD [facility] [address] [place] [address] 02/22/2021 00:00:00 02/22/2021 16:25:14 [id number] Gerber Zhang MD [facility] [address] [place] [address] 04/16/2021 00:00:00 04/16/2021 09:34:11 [id number] Gerber Zhang MD [facility] [address] [place] [address] 04/30/2021 00:00:00 04/30/2021 09:40:04 [id number] Gerber Zhang MD [facility] [address] [place] [address] 08/20/2021 00:00:00 08/20/2021 10:01:49 [id number] Gerber Zhang MD [facility] [address] [place] [address] 09/03/2021 00:00:00 09/03/2021 09:33:08 [id number] Gerber Zhang MD [facility] [address] [place] [address] 11/26/2021 00:00:00 11/26/2021 10:01:51 [id number] Gerber Zhang MD [facility] [address] [place] [address] 01/21/2022 00:00:00 01/21/2022 09:48:55 [id number] Gerber Zhang MD [facility] [address] [place] [address] 04/15/2022 00:00:00 04/15/2022 09:34:49 [id number] Gerber Zhang MD [address] [address] 10/14/2022 11:56:02 10/14/2022 12:52:57 Adult health examination 779827260 Z00.00 Polyarthropathy 17384150 M13.0 Obesity 078876903 E66.9 Gastroesop hageal reflux disease without esophagitis 529702506 K21.9 Family his tory of Cardiovascular disease 442136329 Z82.49 Benign pro static hyperplasia without outflow obstruction 937624726 N40.0 Chronic insomnia 1414136 04 F51.04 Erectile dysfunction 860 881864 F52.21 [id number] Gerber Zhang MD [address] [address] 10/29/2022 14:42:09 10/29/2022 15:34:44 Polyarthropathy 41647382 M13.0 Obesity 958603913 E66.9 Gastroesop hageal reflux disease without esophagitis 319433790 K21.9 Family his tory of Cardiovascular disease 510435982 Z82.49 Benign pro static hyperplasia without outflow obstruction 288407289 N40.0 Erectile dysfunction 860 300016 F52.21 Chronic insomnia 8810881 04 F51.04 Hyperlipidemia 18288664 E78.5 Seasonal a llergic rhinitis 029273621 J30.2 [id number] Gerber Zhang MD [address] [address] 12/23/2022 08:54:06 12/23/2022 09:35:10 Polyarthropathy 25145112 M13.0 Obesity 518666910 E66.9 Family his tory of Cardiovascular disease 533724917 Z82.49 Erectile dysfunction 860 317967 F52.21 [id number] Gerber Zhang MD [place] [address] 02/17/2023 10:25:25 02/17/2023 11:05:21 Obesity 230712280 E66.9 Chronic insomnia 9389254 04 F51.04 Seasonal a llergic rhinitis 014278874 J30.2 [id number] Gerber Zhang MD [address] [address] 05/19/2023 10:01:45 05/19/2023 10:25:21 Chronic insomnia 373697908 F51.04 Seasonal a llergic rhinitis 771920001 J30.2 Obesity 719873686 E66.9 [id number] Gerber Zhang MD [address] [address] 07/21/2023 09:43:54 07/21/2023 10:22:53 Seasonal allergic rhinitis 571727122 J30.2 Chronic insomnia 0310194 04 F51.04 Obesity 314074932 E66.9 Hypertensive disorder 38 616070 I10 [id number] Gerber Zhang MD [address] [address] 10/20/2023 10:42:38 10/20/2023 11:38:23 Hypertensive disorder 81098834 I10 Chronic insomnia 5776741 04 F51.04 Seasonal a llergic rhinitis 581549042 J30.2 Obesity 533550238 E66.9 Adult [facility] th examination 450533810 Z00.00 Polyarthropathy 60535064 M13.0 Fatigue 80509638 R53.83 Pain of ri ght hip joint 2616797520 30955 M25.551 Chronic low back pain 27 2909923 M54.50 Hyperlipidemia 15667683 E78.5 [id number] Gerber Zhang MD [address] [address] 11/24/2023 17:31:30 11/24/2023 17:57:56 Hypertensive disorder 47516417 I10 Chronic insomnia 1414958 04 F51.04 Seasonal a llergic rhinitis 861602547 J30.2 Obesity 777690712 E66.9 Polyarthropathy 19104607 M13.0 Fatigue 98616294 R53.83 Pain of ri ght hip joint 9697832354 94778 M25.551 Chronic low back pain 27 7435729 M54.50 Hyperlipidemia 37111026 E78.5 Degenerati on of lumbar intervertebral disc 04863958 M51.36 Folliculitis 05215870 L7 3.9 Benign pro static hyperplasia without outflow obstruction 958878516 N40.0 [id number] Arnie Marie MD [facility] [place] [address] [place] [address] 12/17/2023 14:28:04 12/17/2023 15:28:00 Pain of left hip joint 4546179880 67562 M25.552 Low back pain 531043186 M54.50 [id number] Gerber Zhang MD [address] [address] 03/29/2024 10:10:06 03/29/2024 11:29:58 Hypertensive disorder 20442176 I10 Chronic insomnia 9137252 04 F51.04 Seasonal a llergic rhinitis 030585324 J30.2 Obesity 077698249 E66.9 Polyarthropathy 41280382 M13.0 Fatigue 49896634 R53.83 Pain of ri ght hip joint 2658125675 61641 M25.551 Chronic low back pain 27 3027996 M54.50 Hyperlipidemia 86394436 E78.5 Degenerati on of lumbar intervertebral disc 79342430 M51.969 [id number] Gerber Zhang MD [address] [address] 05/10/2024 10:51:13 05/10/2024 11:45:07 Polyarthropathy 92354389 M13.0 Hypertensive disorder 38 084464 I10 Chronic insomnia 8730867 04 F51.04 Obesity 066685315 E66.9 Pain of ri ght hip joint 6792213142 53328 M25.551 Chronic low back pain 27 0767433 M54.50 Hyperlipidemia 66135341 E78.5 Degenerati on of lumbar intervertebral disc 26885338 M51.101 [id number] Gerber Zhang MD [address] [address] 06/09/2024 13:56:26 06/09/2024 14:22:22 Chronic low back pain 200142543 M54.50 Degenerati on of lumbar intervertebral disc 11843870 M51.369 Polyarthropathy 09643134 M13.0 Hypertensive disorder 38 005822 I10 Hyperlipidemia 85067830 E78.5 Pain of ri ght hip joint 2063109800 52216 M25.551 Chronic insomnia 4659463 04 F51.04 Obesity 567323852 E66.9 Spinal matt nosis of lumbar region 42484301 M48.061 Lumbar spondylosis 82209 0009 M47.860 [id number] Gerber Zhang MD [address] [address] 07/28/2024 09:45:35 07/28/2024 10:08:04 Hypertensive disorder 67853792 I10 BP diary education given. Chronic low back pain 27 1112305 M54.50 Educated about different options for him. Advised to talk with his Pain clinic about this too. Degenerati on of lumbar intervertebral disc 76539161 M51.369 Lumbar spondylosis 87329 0009 M47.896 Obesity 666334505 E66.9 [id number] Gerbermadeline Zhang MD [address] [address] 08/16/2024 11:02:39 08/16/2024 11:34:22 Spinal stenosis of lumbar region 15227751 M48.061 Lumbar spondylosis 71304 0009 M47.896 Chronic low back pain 27 7530013 M54.50 Educated about different options for him. Advised to talk with his Pain clinic about this too. Degenerati on of lumbar intervertebral disc 09875937 M51.369 Polyarthropathy 47336080 M13.0 Hypertensive disorder 38 190299 I10 BP diary education given. Hyperlipidemia 60332776 E78.5 Pain of ri ght hip joint 7212497962 54029 M25.551 Chronic insomnia 3761788 04 F51.04 Obesity 582078199 E66.9 [id number] Arnie Marie MD [facility] [address] [place] [address] 08/18/2024 08:51:05 08/18/2024 09:28:50 Pain of bilateral hip joints 1086489023 6571509 M25.552 Low back pain 538837528 M54.50 [id number] Gerber Zhang MD [address] [address] 10/19/2024 08:57:56 10/19/2024 09:49:39 Spinal stenosis of lumbar region 22407486 M48.061 Chronic low back pain 27 7425761 M54.50 Educated about different options for him. Advised to talk with his Pain clinic about this too. Lumbar spondylosis 20570 0009 M47.896 Degenerati on of lumbar intervertebral disc 12679035 M51.369 Polyarthropathy 10784762 M13.0 Hypertensive disorder 38 762688 I10 BP diary education given. Hyperlipidemia 66690219 E78.5 Pain of ri ght hip joint 4593547892 47305 M25.551 Chronic insomnia 7341277 04 F51.04 Obesity 428008352 E66.9 Adult heal th examination 584267127 Z00.00 [id number] Gerber Zhang MD [address] [address] 11/17/2024 08:56:28 11/17/2024 09:21:59 Chronic low back pain 823078338 M54.50 Spinal matt nosis of lumbar region 85396973 M48.061 Lumbar spondylosis 11442 0009 M47.896 Degenerati on of lumbar intervertebral disc 78014555 M51.369 Polyarthropathy 37654095 M13.0 Hypertensive disorder 38 215992 I10 Hyperlipidemia 42591726 E78.5 Pain of ri ght hip joint 1143457947 32844 M25.551 Chronic insomnia 5202018 04 F51.04 Obesity 545541886 E66.9 Screening colonoscopy 44 9723072 Z12.11 Bilateral tinnitus 88061 77188 102 H93.13 196108 Chronic [id number] Mando Dale MD [facility] ENT [place] [address] [place] [address] 12/16/2024 11:44:31 12/21/2024 09:06:34 Bilateral hearing loss of ears caused by noise 5819360143 347086 H83.3X3 12010185 Dysphonia 31261351 R49.0 93950 [id number] Gerber Zhang MD [facility] [address] [address] 01/19/2025 12:07:48 01/19/2025 12:41:34 Hypertensive disorder 93534054 I10 Chronic low back pain 27 7030462 M54.50 Spinal matt nosis of lumbar region 47803004 M48.061 Lumbar spondylosis 62543 0009 M47.896 Degenerati on of lumbar intervertebral disc 53448303 M51.369 Polyarthropathy 94657699 M13.0 Hyperlipidemia 76110038 E78.5 Pain of ri ght hip joint 7148703946 92989 M25.551 Chronic insomnia 7175798 04 F51.04 Obesity 232450227 E66.9 Bilateral tinnitus 36398 19652 102 H93.13 810521 Chronic Erectile d ysfunction due to psychophysiologic disorder 566530375 F52.21 019836 Health Concerns Section Related Observation LastModified by Organization Detai ls LastModified Time None Recorded Concern Status LastModified by Organization Details LastModified Time None Recorded Advance Directives Directive N: Payers Insurance Date Sequence Insurance Name Policy Number Policy Shelton Covered Member ID Shelton Member ID Guarantor Name 02/16/2025 1 [place] 112 Yaquelin Khanna Yissel [id number] Bronson Dey 10/14/2022 1 [place] BLUE PREFERRED PLUS (POS) [id number] Yaquelin Yissel [id number] Bronson Dey Notes Date Note Type Note Provider Name and Address Organization Details Recorded Time 10/19/2024 text/html Pt is here for his annual exam. Doing overall better. Denies any problem with meds. Denies any new concern. Pt wants to go back on Phentermine for his wt concern. Pt did not tolerate Wegovy (twice) and so he stopped taking it. Pt doesn't want to take it again. Pt has lost about 29 lbs on Phentermine in the past. Pt is f/u with Pain clinic and got his epidural shot in his lower back with them. Pt will be seeing them in few months. Pt is f/u with Ortho for his b/l hip pain and got steroid shot with them. On last visit, pt's Losartan was increased from 25mg to 50mg, but he was getting light headed and so he went back to 25mg and is doing well on it. Pt was started on Gabapentin, but he did not notice any improvement with his pain. So he stopped it. Pt has seen Spine surgeon for his abnormal MRI L-spine result and he is seeing Pain clinic at [place] for epidural shots. Belsomra is not covered with his insurance.Pt has chronic IBS for last 20+ years and has seen GI and had scopes done with them and was not diagnosed with any IBD by them. Pt is on Mesalamine for it and doing well with it. Denies any blood in stool/any concerns with it. Gerber Zhang MD [address] [place] [address], [facility] [address], [place], [address], [facility] [employer] 10/19/2024 09:38:28 11/17/2024 text/html Pt is here for f/u on his annual labs. Doing overall better. Denies any problem with meds. Denies any new concern. Pt is going to [place] for her daughter's boot camp and is requesting pain med for this trip. Pt is seeing Pain clinic and is getting shot with them; but they are not giving him any Rx for pain med. Pt wants to go back on Phentermine for his wt concern. Pt did not tolerate Wegovy (twice) and so he stopped taking it. Pt doesn't want to take it again. Pt has lost about 29 lbs on Phentermine in the past. Pt is f/u with Pain clinic and got his epidural shot in his lower back with them. Pt will be seeing them in few months. Pt is f/u with Ortho for his b/l hip pain and got steroid shot with them. Pt was started on Gabapentin, but he did not notice any improvement with his pain. So he stopped it. Pt has seen Spine surgeon for his abnormal MRI L-spine result and he is seeing Pain clinic at [place] for epidural shots. Belsomra is not covered with his insurance.Pt has chronic IBS for last 20+ years and has seen GI and had scopes done with them and was not diagnosed with any IBD by them. Pt is on Mesalamine for it and doing well with it. Denies any blood in stool/any concerns with it. Gerber Zhang MD [address], [address], [place], [address], [employer] 11/17/2024 09:41:43 12/16/2024 text/html this patient has a history of hearing loss. 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 He did have an allergy evaluation which was negative. Mando Dale MD [address], [address], [place], [address], [employer] 12/16/2024 12:35:44 01/19/2025 text/html Pt is here for f/u on his meds and chronic conditions. Doing overall better. Denies any problem with meds. Denies any new concern. Pt wants to go back on Phentermine for his wt concern. Pt did not tolerate Wegovy (twice) and so he stopped taking it. Pt doesn't want to take it again. Pt has lost about 29 lbs on Phentermine in the past. Pt is f/u with Pain clinic and got his epidural shot in his lower back with them. Pt will be seeing them in few months. Pt is f/u with Ortho for his b/l hip pain and got steroid shot with them. Pt was started on Gabapentin, but he did not notice any improvement with his pain. So he stopped it. Pt has seen Spine surgeon for his abnormal MRI L-spine result and he is seeing Pain clinic at [place] for epidural shots. Belsomra is not covered with his insurance.Pt has chronic IBS for last 20+ years and has seen GI and had scopes done with them and was not diagnosed with any IBD by them. Pt is on Mesalamine for it and doing well with it. Denies any blood in stool/any concerns with it. Gerber Zhang MD [address], [address], [place], [address], [employer] 01/19/2025 12:40:21
[2025-03-01 06:58] VITALS: BP 156/94; PULSE 77; RESP 20; TEMP 36.5; O2SAT 100; BMI 23.2
[2025-03-01] MEDS: LACTATED RINGERS 1,000 ML 150 ML IV CONT (07:06)
--- NOTE | 2025-03-01 07:53 | WPDANESEPPF ---
Anes - Initial Pre Proc Eval Procedure: Operation Date: 03/01/25 08:30 Proposed Procedures p Screening Colonoscopy - Caleb Tillman DO Date/Time: 03/01/25 07:53 Surgeon: Caleb Tillman DO Pre Op Diagnosis: Neoplasm screening Patient Data Age: 64 Gender: M Height: 2.06 m Weight: 98.3 kg Last Vital Signs Temp 97.7 F 03/01/25 06:58 Pulse 77 03/01/25 06:58 Resp 20 03/01/25 06:58 BP 156/94 H 03/01/25 06:58 Pulse Ox 100 03/01/25 06:58 O2 Del Method Room Air 03/01/25 06:58 Allergies Allergy/AdvReac Type Severity Reaction Status Date / Time No Known Allergies Allergy Verified 03/01/25 06:55 Home Medications ?Medication ?Instructions ?Recorded ?Confirmed ?Type atorvastatin 10 mg tablet 20 mg PO DAILY 08/02/19 03/01/25 History benzonatate 200 mg capsule 200 mg PO TID PRN cough 10 days 08/03/22 03/01/25 Rx #30 caps cetirizine 10 mg tablet (Zyrtec) 10 mg PO DAILY #30 tabs 08/03/22 03/01/25 Rx fluticasone propionate 50 2 spray intranasal BID #15.8 mL 08/03/22 03/01/25 Rx mcg/actuation nasal spray,suspension (Flonase Allergy Relief) prednisone 20 mg tablet 40 mg (2 x 20 mg) PO DAILY cough 5 08/03/22 02/14/25 Rx days #10 tabs cyclobenzaprine 10 mg tablet 10 mg PO DAILY PRN pain 02/14/25 02/14/25 History diclofenac sodium 75 mg 75 mg PO DAILY PRN pain 02/14/25 02/14/25 History tablet,delayed release losartan 50 mg tablet 50 mg PO DAILY 02/14/25 03/01/25 History omeprazole 20 mg capsule,delayed 20 mg PO DAILY 02/14/25 03/01/25 History release pregabalin 50 mg capsule 50 mg PO DAILY PRN pain 02/14/25 02/14/25 History Patient hx anesthesia problems: none Family hx anesthesia problems: none Results Review: All pre-operative results and documents have been reviewed as part of the pre-operative evaluation. [facility] Past Medical History Medical History Obese Hyperlipidemia GERD (gastroesophageal reflux disease) Ulcerative colitis Surgical History Surgical History History of hand surgery Left History of arthroscopy of knee Right Family History Family History Daughter , due to MVC No problems noted. Mother Heart disease Atrial fibrillation Social History Social History Smoking status: Never smoker Tobacco type: cigarettes Second hand tobacco smoke exposure: No Alcohol intake: current Drinks per week: 1 Alcohol use details: 2 per month Substance use: current Substance use type: painkillers Living arrangements: with family Additional living arrangements comments: spouse Occupation/Education: occupation Gender identity (if verbalized by the patient): Male Sexual Orientation (if Verbalized by the Patient): Straight or Heterosexual Spiritual care concerns: No Anes - Eval Final PreProcedure Day of Procedure 03/01/25 07:53 Patient weight: normal Lungs: normal air movement Airway: Mallampati scale class II Neurological: alert and oriented Last oral intake: >/= 8 hours ASA classification: II Emergent: no Anesthetic plan: proceed Anesthesia type and monitoring: general GIVS and standard monitoring Results Review: All pre-operative results and documents have been reviewed as part of the pre-operative evaluation. HTN, hyperlipidemia, hx of UC/crohns disease, now for check up. Pt active w walking 1-2 fos, no cp or sob. Informed Consent: The patient's anesthetic plan and its attendant risks and benefits were discussed with the patient/family/POA. Questions were solicited and answers provided to the satisfaction of the patient/family/POA.
--- NOTE | 2025-03-01 08:33 | PM.IMHP ---
H&P: HPI History of Present Illness Date/Time: 03/01/25 08:33 Chief Complaint: ulcerative colitis Narrative: this is a 64-year-old man who presents for colonoscopy. His last colonoscopy was 5 years ago. He has a history of ulcerative colitis which has been in remission. He denies any hematochezia or melena. He denies any family history of colon cancer. Review of Systems Review of Systems: All systems reviewed & are unremarkable except as noted in HPI and below Constitutional: Constitutional: Denies chills, Denies fever(s), Denies headache(s) and Denies weight loss Eyes: Eyes: Denies change in vision ENT: Denies dizziness, Denies headache(s), Denies neck mass and Denies throat swelling Cardiovascular: Cardiovascular: Denies chest pain, Denies lightheadedness and Denies dyspnea Respiratory: Respiratory: Denies cough, Denies dyspnea and Denies wheezing Gastrointestinal: Gastrointestinal: Denies abdominal pain, Denies change in bowel habits, Denies nausea and Denies vomiting Genitourinary: Genitourinary: Denies hematuria and Denies dysuria Musculoskeletal: Musculoskeletal: Reports as per HPI Integumentary/Breasts: Skin/Breast: Reports as per HPI Neurologic: Denies dizziness and Denies headache(s) Allergic/Immunologic: Allergic/Immunologic: Denies throat swelling and Denies wheezing PMF Past Medical History Medical History (Updated 03/01/25 @ 08:34 by Caleb Tillman DO) Ulcerative colitis Obese Hyperlipidemia GERD (gastroesophageal reflux disease) Surgical History Surgical History History of hand surgery Left History of arthroscopy of knee Right Family History Family History Daughter , due to MVC No problems noted. Mother Heart disease Atrial fibrillation Social History Social History Smoking status: Never smoker Tobacco type: cigarettes Second hand tobacco smoke exposure: No Alcohol intake: current Drinks per week: 1 Alcohol use details: 2 per month Substance use: current Substance use type: painkillers Living arrangements: with family Additional living arrangements comments: spouse Occupation/Education: occupation Gender identity (if verbalized by the patient): Male Sexual Orientation (if Verbalized by the Patient): Straight or Heterosexual Spiritual care concerns: No Meds Home Medications and Allergies Home Medications ?Medication ?Instructions ?Recorded ?Confirmed ?Type atorvastatin 10 mg tablet 20 mg PO DAILY 08/02/19 03/01/25 History benzonatate 200 mg capsule 200 mg PO TID PRN cough 10 days 08/03/22 03/01/25 Rx #30 caps cetirizine 10 mg tablet (Zyrtec) 10 mg PO DAILY #30 tabs 08/03/22 03/01/25 Rx fluticasone propionate 50 2 spray intranasal BID #15.8 mL 08/03/22 03/01/25 Rx mcg/actuation nasal spray,suspension (Flonase Allergy Relief) prednisone 20 mg tablet 40 mg (2 x 20 mg) PO DAILY cough 5 08/03/22 02/14/25 Rx days #10 tabs cyclobenzaprine 10 mg tablet 10 mg PO DAILY PRN pain 02/14/25 02/14/25 History diclofenac sodium 75 mg 75 mg PO DAILY PRN pain 02/14/25 02/14/25 History tablet,delayed release losartan 50 mg tablet 50 mg PO DAILY 02/14/25 03/01/25 History omeprazole 20 mg capsule,delayed 20 mg PO DAILY 02/14/25 03/01/25 History release pregabalin 50 mg capsule 50 mg PO DAILY PRN pain 02/14/25 02/14/25 History Allergies Allergy/AdvReac Type Severity Reaction Status Date / Time No Known Allergies Allergy Verified 03/01/25 06:55 Vital Signs Vital Signs - 24 hr 03/01/25 06:58 Temperature 97.7 F Pulse Rate 77 Respiratory Rate 20 Blood Pressure 156/94 H Pulse Oximetry 100 Oxygen Delivery Room Air Exam Const: General: no acute distress and alert Orientation/consciousness: patient oriented x3 HENMT: Head: normocephalic and atraumatic Ears: hearing grossly normal bilaterally Face/Nose/Sinus: Normal nares present Mouth: Yes Normal oral and palatal mucosa present Eyes: Periorbital: periorbital findings normal Sclera: sclerae normal EOM: EOMs intact bilaterally Neck: Neck: normal visual inspection, no lymphadenopathy and trachea midline Chest: Chest palpation & inspection: normal inspection of the chest Resp: Effort & Inspection: normal respiratory effort Auscultation: clear to auscultation bilaterally Cardio: Jugular venous distension: no JVD Rate: regular rate Rhythm: regular rhythm Heart sounds: S1 normal heart sound present and S2 normal heart sound present Peripheral pulses: Peripheral pulses 2+ throughout GI: Inspection: normal to inspection GI Palp: Yes Soft to palpation, No Tenderness to palpation present (GI), No Guarding due to palpation present (GI) and No Rebound tenderness present Percussion: Yes normal to percussion Auscultation: normal bowel sounds : General: Yes no CVA tenderness Back/Spine/Pelvis: Back: no CVA tenderness Neuro: General: patient oriented x3, no focal motor deficits and CN's II-XI intact bilaterally Cognition (Neuro): normal cognition Speech: normal speech Motor exam (neuro): 5/5 motor strength present throughout Extrem: General: capillary refill normal and no clubbing, cyanosis or edema Assessment and Plan Assessment and plan (1) Ulcerative colitis: Code(s): K51.90 - Ulcerative colitis, unspecified, without complications Status: Acute Assessment and Plan: I have recommended colonoscopy. I have discussed the procedure, risks, benefits, and alternatives. Questions were answered. Patient is agreeable to proceed.
--- NOTE | 2025-03-01 08:56 | S_PTH ---
PATIENT: Bronson Dey LOC: [facility] U#:[id number] AGE/SX: 64/M ROOM: RE03/01/[address]: Caleb Tillman DO : 1960 BED: DIS: 03/01/2025 SPEC #: [id number] RECD: 03/01/25 10:08 STATUS: VASQUEZ RE #: [id number] KVNG: 03/01/25 08:[address]: Caleb Tillman DEPT: [facility] Surgical RECD BY: Siena Rodriguez ENTERED: 03/01/25 10:08 SP TYPE: Surgical OTHR DR: Gerber Zhang, Tissues: A - Colon Biopsy Procedures: Hematoxylin and Eosin Stain Gross and Microscopic Level 4
[2025-03-01 08:57] VITALS: BP 108/75; PULSE 86; RESP 18; O2SAT 95
[2025-03-01 09:07] VITALS: BP 111/71; PULSE 80; RESP 14; O2SAT 97
[2025-03-01 09:17] VITALS: BP 139/76; PULSE 78; RESP 18; O2SAT 98
== END 2025-03-01 09:28 | disposition home or self-care (01) ==
PROVIDERS: PCP Family Medicine; Visit Provider Surgery
PROC: 0DJD8ZZ Inspection of Lower Intestinal Tract, Via Natural or Artificial Opening Endoscopic (ICD-10-PCS; CPT 45378; principal; 2025-03-01 08:30)
DX: K51.90 Ulcerative colitis, unspecified, without complications (principal); I10 Essential (primary) hypertension; E78.5 Hyperlipidemia, unspecified; K21.9 Gastro-esophageal reflux disease without esophagitis; Z79.52 Long term (current) use of systemic steroids; Z87.19 Personal history of other diseases of the digestive system; Z82.49 Family history of ischemic heart disease and other diseases of the circulatory system
CPT/HCPCS: 45380; 88305; J2003; J2704; J7120